=== PATIENT | male | born 1995 | race Caucasian/White ===

== ENCOUNTER 2017-11-26 18:06 | Emergency (ER) | payer MEDICAID, SELFPAY ==
[2017-11-26 18:06] VITALS: BP 148/97; PULSE 75; RESP 18; TEMP 37; O2SAT 99; BMI 23.0
--- NOTE | 2017-11-26 19:38 | ED.RN ---
pt stated that he did not want this to be filed under workmans comp. pt did fill out bite form.
--- NOTE | 2017-11-26 20:00 | ED.DCSUM_ITS ---
- ER Visit Summary Date of Service: 11/26/17 Chief Complaint: Dog bite left thigh History of Present Illness: The patient is a 22 M who was bit by a domestic dog , someone's pad about 3 hours prior to presentation on the left thigh. The legal researcher reported that the dog is vaccinated. The patient was wearing jeans and notes that it did not tear punctured the jeans. Physical Examination: Afebrile vitals are stable Patient has abrasions to the anterior left thigh there are no full-thickness skin lacerations or puncture wounds Test Results: Not indicated Emergency Department Course and Treatment: Patient has very superficial wounds/ abrasions to the left thigh there are no lacerations or puncture wounds this was cleansed. He was instructed on local wound care. He was instructed on signs and symptoms to monitor for and was discharged home. Treatment Plan: [] Disposition: Discharge Impression: Dog bite left thigh This note was generated with [employer] dictation software. It may contain incorrect words, spelling, and punctuation that were not noted in review of the chart prior to signing ED Disposition - Plan for ED Patient: Chief Complaint: Bite Referrals: Dayo Ackerman MD [Primary Care Provider] -
--- NOTE | 2017-11-26 20:00 | ED.DEP ---
ED Disposition - Plan for ED Patient: Chief Complaint: Bite Instructions: ED Bite Dog Referrals: Dayo Ackerman MD [Primary Care Provider] -
[2017-11-26 20:09] VITALS: BP 141/75; PULSE 85; RESP 14; O2SAT 99
== END 2017-11-26 20:13 | disposition home or self-care (01) ==
LOC: ED 20:06
PROVIDERS: Emergency Provider Emergency Medicine; Family Provider Family Medicine; PCP Family Medicine
DX: S71.152A Open bite, left thigh, initial encounter (principal); W54.0XXA Bitten by dog, initial encounter; Y93.9 Activity, unspecified; Y92.9 Unspecified place or not applicable; Y99.9 Unspecified external cause status
CPT/HCPCS: 99282

== ENCOUNTER 2018-07-28 13:51 | Emergency (ER) | payer MEDICAID, SELFPAY ==
[2018-07-28 13:53] VITALS: BP 125/80; PULSE 100; RESP 14; TEMP 36.3; O2SAT 100; BMI 19.7
--- NOTE | 2018-07-28 14:06 | ED.VISSUMM ---
- ER Visit Summary Date of Service: 07/28/18 Chief Complaint: Left ankle injury History of Present Illness: The patient is a 23 M no significant past medical or surgical history. Patient was at a trampoline park last evening. As he was jumping up and down the trampoline he twisted his left ankle and heard a crack. He denies any other injuries. He has pain and swelling to his left lateral ankle. States he is unable to walk on it. Denies any other injuries. No prior history or surgery of a prior left ankle injury. Denies any knee or hip pain. No numbness. Physical Examination: Well-appearing young male. No acute distress. Vital signs stable afebrile. H EENT exam unremarkable atraumatic. Neck nontender. Lungs clear to auscultation bilaterally. Heart regular rate and rhythm no murmur. Chest wall nontender. Abdomen soft and nontender. No peritoneal signs. Pelvic girdle intact. Patient is moving all 4 extremities. Neurovascular intact. Specifically left hip and knee are nontender and nonswollen. With normal range of motion. Left ankle the lateral malleolus is significantly gone. Tender to palpation. Mild tenderness to the medial malleolus. Achilles tendon is intact. Dorsi and plantar flexion is intact. DP pulses intact. No gross bony deformities. Itself is nontender. Liver wiggle his toes. Normal touch sensation. Back nontender. Neurologic exam normal. Test Results: Left ankle x-ray 3 views shows no acute fracture. No dislocation. Soft tissue swelling. Read both by myself and radiologist. Emergency Department Course and Treatment: On repeat exam at 15:00. No change. He and I discussed his x-ray. Treatment Plan: Aircast. Ice and elevate. Motrin to decrease pain and swelling. Follow-up with orthopedics if not improving. Disposition: Discharge Impression: Acute left ankle sprain This note was generated with [employer] dictation software. It may contain incorrect words, spelling, and punctuation that were not noted in review of the chart prior to signing ED Disposition - Plan for ED Patient: Chief Complaint: Lower Extremity Injury Referrals: Dayo Ackerman MD [Primary Care Provider] -
--- NOTE | 2018-07-28 14:17 | RAD_ITS ---
STUDY: X-RAY - LEFT ANKLE REASON FOR EXAM: Male, 23 years old. Pain and swelling TECHNIQUE: 3 view(s) of the ankle. COMPARISON: None FINDINGS: No definite evidence for an acute fracture seen. There is soft tissue swelling overlying the ankle joint noted. Anterior process of the calcaneus is within normal limits. Fifth metatarsal base is not included on this examination. The talar dome appears intact. Lateral process of the talus is intact IMPRESSION: Soft tissue swelling overlying the ankle joint. No definite evidence for acute fracture seen. Please note the fifth metatarsal base is not included on this exam Electronically Signed: Jefferson Barr, at 14:43 EST Tel , Service support , RAD/Ankle min 3 Views
--- NOTE | 2018-07-28 15:16 | ED.DEP ---
ED Disposition - Plan for ED Patient: Disposition: Home or Assisted Living Chief Complaint: Lower Extremity Injury Instructions: ED Sprain Ankle W X Ray Referrals: Dayo Ackerman MD [Primary Care Provider] - As Needed Chuck Lao MD [STAFF PHYSICIAN] - 10-14 Days if not better Additional Instructions: Ice and elevate left ankle to decrease pain and swelling. Aircast and increase activity and weightbearing as tolerated. Motrin for pain and inflammation. If not improving follow-up with orthopedic surgeon.
--- OUTSIDE RECORDS SUMMARY | 2018-10-30 13:30 | XMS RPT_ITS ---
:1995 Author Organization OHIP Care Team Providers Name Role Phone Dayo Ackerman Primary Care Unavailable Cullen Shepherd Attending Unavailable Dayo Ackerman Primary Care Unavailable Dayo Gandhi Attending Unavailable BRENDA AVILA (ORACLE R12 DEVELOPER) Attending Unavailable KASIA ALATORRE Attending Unavailable VANESA MORGAN (ORACLE R12 DEVELOPER) Referring Unavailable RIKKI STUBBS CNP Attending Unavailable ELIZABETH BENTLEY Primary Care Unavailable YENIFER BENSON Attending Unavailable *SELF, REFERRED Referring Unavailable JanaeMr. Patterson Tavon Primary Care Unavailable YENIFER BENSON Attending Unavailable JanaeMr. Patterson Tavon Primary Care Unavailable PROBLEMS PROBLEMS DATE TYPE CONDITION / ATTENDING STATUS SOURCE CODE 12/07/2017 Admitting Encounter for Adis STUBBS CNP [facility] Diagnosis screening for RIKKI Ramirez diabetes Repository mellitus / Z13.1(ICD-10) PROCEDURES PROCEDURES No Procedure Records FoundRESULTS RESULTS DISCHARGE INSTRUCTION Observed: 07/28/2018 Status: F Source: [place] 4:03 PM [facility] REPOSIT[facility] Medical Records Department [address] [place] [address] Discharge Instruction 07/28/18 1516 MR#: [id number] Acct: [id number] Name: YANDEL FLAHERTY Rep #: [id number] : 1995 23 From: Dayo Gandhi MD PCP: Dayo Ackerman MD Status: DEP ER ED Disposition - Plan for ED Patient: Disposition: Home or Assisted Living Chief Complaint: Lower Extremity Injury Instructions: ED Sprain Ankle W X Ray Referrals: Dayo Ackerman MD [Primary Care Provider] - As Needed Chuck Lao MD [STAFF PHYSICIAN] - 10-14 Days if not better Additional Instructions: Ice and elevate left ankle to decrease pain and swelling. Aircast and increase activity and weightbearing as tolerated. Motrin for pain and inflammation. If not improving follow-up with orthopedic surgeon. What to do if you have Problems For any increased pain, shortness of breath, bleeding, nausea or vomiting, chest pain, or any unexpected problems, contact your Primary Care Provider. Call [facility] ([phone]) or report to the closest Emergency Room. Call 911 if necessary. 07/28/18 1603 <Electronically signed by Dayo Gandhi MD> Date Dayo Gandhi MD Cosigner Signature (If Indicated): Date CC: Dayo Ackerman MD EMERGENCY DEPARTMENT Observed: 07/28/2018 Status: F Source: [place] SUMMARY 4:03 PM [facility] REPOSIT[facility] Medical Records Department [address] [place] [address] Emergency Department Summary 07/28/18 1406 MR#: [id number] Acct: [id number] Name: YANDEL FLAHERTY Rep #: [id number] : 1995 23 From: Dayo Gandhi MD PCP: Dayo Ackerman MD Status: DEP ER - ER Visit Summary Date of Service: 07/28/18 Chief Complaint: Left ankle injury History of Present Illness: The patient is a 23 M no significant past medical or surgical history. Patient was at a trampoline park last evening. As he was jumping up and down the trampoline he twisted his left ankle and heard a crack. He denies any other injuries. He has pain and swelling to his left lateral ankle. States he is unable to walk on it. Denies any other injuries. No prior history or surgery of a prior left ankle injury. Denies any knee or hip pain. No numbness. Physical Examination: Well-appearing young male. No acute distress. Vital signs stable afebrile. H EENT exam unremarkable atraumatic. Neck nontender. Lungs clear to auscultation bilaterally. Heart regular rate and rhythm no murmur. Chest wall nontender. Abdomen soft and nontender. No peritoneal signs. Pelvic girdle intact. Patient is moving all 4 extremities. Neurovascular intact. Specifically left hip and knee are nontender and nonswollen. With normal range of motion. Left ankle the lateral malleolus is significantly gone. Tender to palpation. Mild tenderness to the medial malleolus. Achilles tendon is intact. Dorsi and plantar flexion is intact. DP pulses intact. No gross bony deformities. Itself is nontender. Liver wiggle his toes. Normal touch sensation. Back nontender. Neurologic exam normal. Test Results: Left ankle x-ray 3 views shows no acute fracture. No dislocation. Soft tissue swelling. Read both by myself and radiologist. Emergency Department Course and Treatment: On repeat exam at 15:00. No change. He and I discussed his x-ray. Treatment Plan: Aircast. Ice and elevate. Motrin to decrease pain and swelling. Follow-up with orthopedics if not improving. Disposition: Discharge Impression: Acute left ankle sprain This note was generated with [employer] dictation software. It may contain incorrect words, spelling, and punctuation that were not noted in review of the chart prior to signing ED Disposition - Plan for ED Patient: Chief Complaint: Lower Extremity Injury Referrals: Dayo Ackerman MD [Primary Care Provider] - What to do if you have Problems For any increased pain, shortness of breath, bleeding, nausea or vomiting, chest pain, or any unexpected problems, contact your Primary Care Provider. Call [facility] ([phone]) or report to the closest Emergency Room. Call 911 if necessary. 07/28/18 1603 <Electronically signed by Dayo Gandhi MD> Date Dayo Gandhi MD Cosigner Signature (If Indicated): Date CC: Dayo Ackerman MD ANKLE MIN 3 VIEWS Observed: 07/28/2018 Status: F Source: [place] 1:59 PM [facility] REPOSIT[facility] Imaging Services [address] [place] [address] Ankle min 3 Views MR#: [id number] Acct: [id number] Name: YANDEL FLAHERTY Rep #: [id number] : 1995 M 23 From: Jefferson Barr MD PCP: Dayo Ackerman MD Status: REG ER Study: Ankle min 3 Views Date of Exam: 07/28/18 Exam# [id number] Ordering Dr: Dayo Gandhi MD STUDY: X-RAY - LEFT ANKLE REASON FOR EXAM: Male, 23 years old. Pain and swelling TECHNIQUE: 3 view(s) of the ankle. COMPARISON: None FINDINGS: No definite evidence for an acute fracture seen. There is soft tissue swelling overlying the ankle joint noted. Anterior process of the calcaneus is within normal limits. Fifth metatarsal base is not included on this examination. The talar dome appears intact. Lateral process of the talus is intact IMPRESSION: Soft tissue swelling overlying the ankle joint. No definite evidence for acute fracture seen. Please note the fifth metatarsal base is not included on this exam Electronically Signed: Jefferson Barr, at 14:43 EST Tel , Service support , RAD/Ankle min 3 Views CC: Dayo Ackerman MD; Dayo Gandhi MD Retail Area Manager: Signed PROGRESS Observed: 05/02/2018 Status: COMPLETED Source: [facility] 8:29 PM [facility] REPOSITORY HNO ID: [id number] Author: Ellen Tom Service: (none) Author Type: Nurse Practitioner Type: Progress Notes Filed: 05/02/2018 8:55 PM Note Text: Subjective HPI HPI Yandel Flaherty is a 23 year old male who presents today for CC of rash, seen in 04/30 tx for contact derm. Since last visit gabriele has been producing puss. Fever noted today, now spreading to face .Patient presents with: Rash PAST MEDICAL HISTORY Diagnosis Date - Arm fracture, left age 4 yrs fell down steps - Heart palpitations 06/2011 [facility] ER/EKG normal - NEGATIVE MEDICAL HISTORY 10/23/11 normal color vision - Right arm fracture age 11 yrs skateboard - Sprain of left ankle 05/23 PAST SURGICAL HISTORY Procedure Laterality Date - 2D ECHO (EXEP) 02/2017 EF=64%, no abnormalities. - COLONOSCOP W/ OR W/O [facility] SPEC 09/04/2017 Colonoscopy - EGD W/O OR W/BRUSH/WASH 09/04/2017 EGD ALLERGIES Bactrim [Sulfamethoxazole-Trimethoprim]; Pollen Extracts; Sulfamethoxazole; Trimethoprim MEDICATIONS triamcinolone acetonide (KENALOG) 0.1 % cream Apply 1 application to affected area three times daily. Apply sparingly to area for rash/itching. erythromycin ophthalmic ointment FAMOTIDINE (PEPCID ORAL) Take by mouth as needed. FAMILY HISTORY Problem Relation Age of Onset - other (graves) Mother 28 radioactive iodine - Kidney Disease Sister Focal gramanular Schlerosis - Diabetes Maternal Grandmother - Arthritis Maternal Grandmother rheumatoid - other (pulmonary fibrosis) Maternal Grandmother smoker - Asthma Paternal Grandmother - Diabetes Paternal Grandmother - other (lung cancer) Paternal Grandmother smoker Social History Substance Use Topics - Smoking status: Passive Smoke Exposure - Never Smoker - Smokeless tobacco: Former User Comment: mom smokes outside - Alcohol use Yes Comment: occasional Review of Systems Constitutional: Positive for fever. HENT: Positive for sore throat. Negative for sinus pain. Respiratory: Negative for cough, shortness of breath and wheezing. Cardiovascular: Negative for chest pain. Skin: Positive for itching and rash. Objective Blood pressure 100/80, pulse 102, temperature 36.8 ?C (98.2 ?F), temperature source Left Tympanic, resp. rate 16, weight 77.1 kg (170 lb). Physical Exam Constitutional: He is oriented to person, place, and time and well-developed, well-nourished, and in no distress. Non-toxic appearance. He does not have a sickly appearance. No distress. HENT: Head: Normocephalic and atraumatic. Mouth/Throat: Posterior oropharyngeal erythema present. No oropharyngeal exudate, posterior oropharyngeal edema or tonsillar abscesses. Pulmonary/Chest: Effort normal. No accessory muscle usage. No respiratory distress. Neurological: He is alert and oriented to person, place, and time. Skin: He is not diaphoretic. ASSESSMENT/PLAN: 1. Rash - ICD9: 782.1, ICD10: R21 (primary diagnosis) -few honey crusted lesions, possible impetigo -use medication as prescribed -follow up if symptoms persist, worsen, change 2. Sore throat - ICD9: 462, ICD10: J02.9 - Rapid Strep negative in the office today - Discussed supportive care treatment with fluids, rest and analgesia. - The patient should follow up in 3-5 days if symptoms persist or worsen - Call back if drooling, increased temperature, symptoms of dehydration and/or still sick in one week 3. Secondary infection of skin - ICD9: 686.8, ICD10: L08.89 -will treat with cephalexin -follow up if worsening signs of infection Prescription instructions reviewed with patient as applicable. Patient advised if symptoms do not improve or if symptoms worsen sooner, to contact the office for further evaluation by their primary care physician. Potential red flag symptoms discussed with the patient. Reviewed appropriate action plan to take if red flag symptoms occur. Patient agreeable to treatment plan. Ellen Tom APRN.FUNERAL LIMOUSINE DRIVER CNOV Observed: 05/02/2018 Status: COMPLETED Source: [place] [place] 8:15 PM [facility] REPOSITORY Office Visit (WSTR) YANDEL FLAHERTY ([id number]) 1995 M Date Time Provider Department 05/02/18 8:15 PM ELLEN TOM ([facility]) [facility] During your visit today, we recorded the following information about you: Temperature Pulse Respiration Blood pressure 98.2 degrees 102/minute 16/minute 100/80 Weight 77.1 kg Ellen Tom APRN.CNP 05/02/2018 8:55 PM Signed Subjective HPI HPI Yandel Flaherty is a 23 year old male who presents today for CC of rash, seen in 04/30 tx for contact derm. Since last visit gabriele has been producing puss. Fever noted today, now spreading to face .Patient presents with: Rash PAST MEDICAL HISTORY Diagnosis Date - Arm fracture, left age 4 yrs fell down steps - Heart palpitations 06/2011 [facility] ER/EKG normal - NEGATIVE MEDICAL HISTORY 10/23/11 normal color vision - Right arm fracture age 11 yrs skateboard - Sprain of left ankle 05/23 PAST SURGICAL HISTORY Procedure Laterality Date - 2D ECHO (EXEP) 02/2017 EF=64%, no abnormalities. - COLONOSCOP W/ OR W/O [facility] SPEC 09/04/2017 Colonoscopy - EGD W/O OR W/BRUSH/WASH 09/04/2017 EGD ALLERGIES Bactrim [Sulfamethoxazole-Trimethoprim]; Pollen Extracts; Sulfamethoxazole; Trimethoprim MEDICATIONS triamcinolone acetonide (KENALOG) 0.1 % cream Apply 1 application to affected area three times daily. Apply sparingly to area for rash/itching. erythromycin ophthalmic ointment FAMOTIDINE (PEPCID ORAL) Take by mouth as needed. FAMILY HISTORY Problem Relation Age of Onset - other (graves) Mother 28 radioactive iodine - Kidney Disease Sister Focal gramanular Schlerosis - Diabetes Maternal Grandmother - Arthritis Maternal Grandmother rheumatoid - other (pulmonary fibrosis) Maternal Grandmother smoker - Asthma Paternal Grandmother - Diabetes Paternal Grandmother - other (lung cancer) Paternal Grandmother smoker Social History Substance Use Topics - Smoking status: Passive Smoke Exposure - Never Smoker - Smokeless tobacco: Former User Comment: mom smokes outside - Alcohol use Yes Comment: occasional Review of Systems Constitutional: Positive for fever. HENT: Positive for sore throat. Negative for sinus pain. Respiratory: Negative for cough, shortness of breath and wheezing. Cardiovascular: Negative for chest pain. Skin: Positive for itching and rash. Objective Blood pressure 100/80, pulse 102, temperature 36.8 ?C (98.2 ?F), temperature source Left Tympanic, resp. rate 16, weight 77.1 kg (170 lb). Physical Exam Constitutional: He is oriented to person, place, and time and well-developed, well-nourished, and in no distress. Non-toxic appearance. He does not have a sickly appearance. No distress. HENT: Head: Normocephalic and atraumatic. Mouth/Throat: Posterior oropharyngeal erythema present. No oropharyngeal exudate, posterior oropharyngeal edema or tonsillar abscesses. Pulmonary/Chest: Effort normal. No accessory muscle usage. No respiratory distress. Neurological: He is alert and oriented to person, place, and time. Skin: He is not diaphoretic. ASSESSMENT/PLAN: 1. Rash - ICD9: 782.1, ICD10: R21 (primary diagnosis) -few honey crusted lesions, possible impetigo -use medication as prescribed -follow up if symptoms persist, worsen, change 2. Sore throat - ICD9: 462, ICD10: J02.9 - Rapid Strep negative in the office today - Discussed supportive care treatment with fluids, rest and analgesia. - The patient should follow up in 3-5 days if symptoms persist or worsen - Call back if drooling, increased temperature, symptoms of dehydration and/or still sick in one week 3. Secondary infection of skin - ICD9: 686.8, ICD10: L08.89 -will treat with cephalexin -follow up if worsening signs of infection Prescription instructions reviewed with patient as applicable. Patient advised if symptoms do not improve or if symptoms worsen sooner, to contact the office for further evaluation by their primary care physician. Potential red flag symptoms discussed with the patient. Reviewed appropriate action plan to take if red flag symptoms occur. Patient agreeable to treatment plan. JILLIAN Keita APRN.CNP 05/02/2018 8:49 PM Signed ASSESSMENT/PLAN: 1. Rash - ICD9: 782.1, ICD10: R21 (primary diagnosis) -use medication as prescribed -follow up if symptoms persist, worsen, change 2. Sore throat - ICD9: 462, ICD10: J02.9 - Rapid Strep negative in the office today - Discussed supportive care treatment with fluids, rest and analgesia. - The patient should follow up in 3-5 days if symptoms persist or worsen - Call back if drooling, increased temperature, symptoms of dehydration and/or still sick in one week 3. Secondary infection of skin - ICD9: 686.8, ICD10: L08.89 -will treat with cephalexin -follow up if worsening signs of infection Referring Provider: SELF [200] Allergies As of Date: 05/02/2018 Noted Allergy Reaction BACTRIM (SULFAMETHOXAZOLE-TRIMETH*01/16/2017 2 - Rash POLLEN EXTRACTS 04/26/2017 14 - Other: See Comments Comments: Stuffy nose, cough SULFAMETHOXAZOLE 02/04/2017 2 - Rash TRIMETHOPRIM 02/04/2017 2 - Rash Date Reviewed: 05/02/2018 Reviewed by: Ellen CastroSomerville HospitalDenzel Tom - Fully Assessed Reason for Visit: Rash [1087] Primary Visit Diagnosis:Rash [R21] Other Visit Diagnoses:Sore throat [J02.9] Secondary infection of skin [L08.89] Order(s):RAPID STREP TEST B/O [[id number]] Order #: [id number] cephALEXin (KEFLEX) 500 mg capsuleTake 1 capsule by mouth three times daily for 10 days.Disp: 30 capsuleRfl: 0 methylPREDNISolone (MEDROL, LORENZO,) 4 mg Dose-PackFollow dosing instructions, take with food.Disp: 1 PackageRfl: 0 Prescriptions as of 05/02/2018 Sig: TRIAMCINOLONE ACETONIDE 0.1 %* Apply 1 application to affect* CEPHALEXIN 500 MG CAPSULE Take 1 capsule by mouth three* METHYLPREDNISOLONE 4 MG TABLE* Follow dosing instructions, t* ERYTHROMYCIN 5 MG/GRAM (0.5 %* PEPCID ORAL Take by mouth as needed. Problem List As Of Date 05/02/2018 Noted Resolved Heart palpitations [R00.2] INVALID FOR* More... Well adult exam [Z00.00] INVALID FOR* Priority: E More... Encounter for screening for cardiovascular diso*INVALID FOR* Encounter for screening for diabetes mellitus [*INVALID FOR* Mild anxiety [F41.9] INVALID FOR* Palpitations [R00.2] INVALID FOR* Epigastric pain [R10.13] INVALID FOR* Atypical chest pain [R07.89] INVALID FOR* Hematochezia [K92.1] INVALID FOR* Lower abdominal pain [R10.30] INVALID FOR* Heart burn [R12] INVALID FOR* Sinus tachycardia [R00.0] INVALID FOR* Priority: A More... Altered bowel habits [R19.4] INVALID FOR* More... Bright red rectal bleeding [K62.5] INVALID FOR* More... GERD (gastroesophageal reflux disease) [K21.9] INVALID FOR* More... Dyspepsia [R10.13] INVALID FOR* More... Other instructions from your clinician: ASSESSMENT/PLAN: 1. Rash - ICD9: 782.1, ICD10: R21 (primary diagnosis) -use medication as prescribed -follow up if symptoms persist, worsen, change 2. Sore throat - ICD9: 462, ICD10: J02.9 - Rapid Strep negative in the office today - Discussed supportive care treatment with fluids, rest and analgesia. - The patient should follow up in 3-5 days if symptoms persist or worsen - Call back if drooling, increased temperature, symptoms of dehydration and/or still sick in one week 3. Secondary infection of skin - ICD9: 686.8, ICD10: L08.89 -will treat with cephalexin -follow up if worsening signs of infection Prescriptions ordered this encounter Disp Refills Start End CEPHALEXIN 500 MG CAPSULE 30 c* 0 05/02/2018 05/12/2018 Route: ORAL Sig: Take 1 capsule by mouth three times daily for 10 days. METHYLPREDNISOLONE 4 MG TABLETS IN A* 1 Pa* 0 05/02/2018 05/08/2018 Sig: Follow dosing instructions, take with food. Encounter Status:Closed by ELLEN TOM CNP on 05/02/18 MARIANGEL Observed: 04/30/2018 Status: COMPLETED Source: [place] [place] 8:00 PM [facility] REPOSITORY Office Visit (WSTR) YANDEL FLAHERTY ([id number]) 1995 M Date Time Provider Department 04/30/18 8:00 PM ELVIRA ROMERO (FUNERAL LIMOUSINE DRIVER) [facility] During your visit today, we recorded the following information about you: Temperature Pulse Respiration Blood pressure 98.3 degrees 60/minute 16/minute 116/60 Weight 77.6 kg Elvira Romero APRN.CNP 04/30/2018 8:10 PM Signed Subjective The history is provided by the patient. No educational interpreter was used. HPI Yandel Flaherty is a 23 year old male who presents today for CC of rash, on arm, that are itchy Onset/Duration: 3 weeks ago. Alleviating/Treatment: Nothing, itch cream with out relief. Aggravating: None known Risk factors: Swam in quinones 3 weeks BP 116/60 Pulse 60 Temp 36.8 ?C (98.3 ?F) (Tympanic) Resp 16 Wt 77.6 kg (171 lb) BMI 23.19 kg/m? ALLERGIES Allergen Reactions - Bactrim [Sulfametho* Rash - Pollen Extracts Other: See Comments Stuffy nose, cough - Sulfamethoxazole Rash - Trimethoprim Rash ACTIVE PROBLEM LIST Heart Palpitations Well Adult Exam Encounter for Screening for Cardiovascular Disorders Encounter for Screening for Diabetes Mellitus Mild Anxiety Palpitations Epigastric Pain Atypical Chest Pain Hematochezia Lower Abdominal Pain Heart Burn Sinus Tachycardia Altered Bowel Habits Bright Red Rectal Bleeding Gerd (Gastroesophageal Reflux Disease) Dyspepsia Family History Problem Relation Age of Onset - other (graves) Mother 28 radioactive iodine - Kidney Disease Sister Focal gramanular Schlerosis - Diabetes Maternal Grandmother - Arthritis Maternal Grandmother rheumatoid - other (pulmonary fibrosis) Maternal Grandmother smoker - Asthma Paternal Grandmother - Diabetes Paternal Grandmother - other (lung cancer) Paternal Grandmother smoker Social History Marital status: Single Spouse name: Years of education: Number of children: 0 Social History Main Topics Smoking status: Passive Smoke Exposure - Never Smoker Packs/day: 0.00 Years: 0.00 Smokeless tobacco: Former User Comment: mom smokes outside Alcohol use: Yes Comment: occasional Drug use: No Sexual activity: No PAST MEDICAL HISTORY Diagnosis Date - Arm fracture, left age 4 yrs fell down steps - Heart palpitations 06/2011 [facility] ER/EKG normal - NEGATIVE MEDICAL HISTORY 10/23/11 normal color vision - Right arm fracture age 11 yrs skateboard - Sprain of left ankle 05/23 Review of Systems Constitutional: Negative for chills, fever and malaise/fatigue. Genitourinary: Negative for dysuria. Musculoskeletal: Negative for joint pain and myalgias. Skin: Positive for itching and rash. Neurological: Negative for headaches. Objective Physical Exam Constitutional: He is oriented to person, place, and time and well-developed, well-nourished, and in no distress. No distress. HENT: Head: Normocephalic and atraumatic. Eyes: Pupils are equal, round, and reactive to light. Conjunctivae and EOM are normal. Neck: Normal range of motion. Neck supple. Pulmonary/Chest: Effort normal. Neurological: He is alert and oriented to person, place, and time. Skin: Skin is warm and dry. Rash noted. Rash is papular (brown and red). There is erythema. Psychiatric: Affect normal. Nursing note and vitals reviewed. ASSESSMENT/PLAN: 1. 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 - TRIAMCINOLONE ACETONIDE 0.1 % TOPICAL CREAM Diagnosis and treatment plan were discussed and questions were answered to the patient's satisfaction. Pt acknowledged understanding of concepts and follow up plan. Specific signs and symptoms that would indicate the need for higher level of care were discussed in detail warranting prompt ER evaluation. Elvira Romero APRN.SERGEY Romero APRN.SERGEY 04/30/2018 8:04 PM Signed ASSESSMENT/PLAN: 1. Rash - ICD9: 782.1, ICD10: R21 Use cream as directed for 2 weeks Benadryl 50 mg at bedtime Zyrtec 10 mg By mouth daily at bedtime If no improvement follow up with PCP, or significantly worsening symptoms to ER. - TRIAMCINOLONE ACETONIDE 0.1 % TOPICAL CREAM Referring Provider: SELF [200] Allergies As of Date: 04/30/2018 Noted Allergy Reaction BACTRIM (SULFAMETHOXAZOLE-TRIMETH*01/16/2017 2 - Rash POLLEN EXTRACTS 04/26/2017 14 - Other: See Comments Comments: Stuffy nose, cough SULFAMETHOXAZOLE 02/04/2017 2 - Rash TRIMETHOPRIM 02/04/2017 2 - Rash Date Reviewed: 04/30/2018 Reviewed by: Sandra Goodman LPN - Fully Assessed Reason for Visit: Derm Problem [33] Cmt: skin feels irritated AND itches over most of body, has small red bumps on hands X 1 miguel a Primary Visit Diagnosis:Rash [R21] Order(s):triamcinolone acetonide (KENALOG) 0.1 % creamApply 1 application to affected area three times daily. Apply sparingly to area for rash/itching.Disp: 80 gRfl: 0 Prescriptions as of 04/30/2018 Sig: TRIAMCINOLONE ACETONIDE 0.1 %* Apply 1 application to affect* ERYTHROMYCIN 5 MG/GRAM (0.5 %* PEPCID ORAL Take by mouth as needed. Problem List As Of Date 04/30/2018 Noted Resolved Heart palpitations [R00.2] INVALID FOR* More... Well adult exam [Z00.00] INVALID FOR* Priority: E More... Encounter for screening for cardiovascular diso*INVALID FOR* Encounter for screening for diabetes mellitus [*INVALID FOR* Mild anxiety [F41.9] INVALID FOR* Palpitations [R00.2] INVALID FOR* Epigastric pain [R10.13] INVALID FOR* Atypical chest pain [R07.89] INVALID FOR* Hematochezia [K92.1] INVALID FOR* Lower abdominal pain [R10.30] INVALID FOR* Heart burn [R12] INVALID FOR* Sinus tachycardia [R00.0] INVALID FOR* Priority: A More... Altered bowel habits [R19.4] INVALID FOR* More... Bright red rectal bleeding [K62.5] INVALID FOR* More... GERD (gastroesophageal reflux disease) [K21.9] INVALID FOR* More... Dyspepsia [R10.13] INVALID FOR* More... Other instructions from your clinician: ASSESSMENT/PLAN: 1. Rash - ICD9: 782.1, ICD10: R21 Use cream as directed for 2 weeks Benadryl 50 mg at bedtime Zyrtec 10 mg By mouth daily at bedtime If no improvement follow up with PCP, or significantly worsening symptoms to ER. - TRIAMCINOLONE ACETONIDE 0.1 % TOPICAL CREAM Prescriptions ordered this encounter Disp Refills Start End TRIAMCINOLONE ACETONIDE 0.1 % TOPICA* 80 g 0 04/30/2018 Route: TOPICAL Sig: Apply 1 application to affected area three times daily. Apply sparingly to area for rash/itching. Encounter Status:Closed by ELVIRA ROMERO CNP on 04/30/18 PROGRESS Observed: 04/30/2018 Status: COMPLETED Source: [place] 7:59 PM [facility] MAIN [place] REPOSITORY O ID: [id number] Author: Elvira (Sergey) Heather Service: (none) Author Type: Nurse Practitioner Type: Progress Notes Filed: 04/30/2018 8:10 PM Note Text: Subjective The history is provided by the patient. No educational interpreter was used. HPI Yandel Flaherty is a 23 year old male who presents today for CC of rash, on arm, that are itchy Onset/Duration: 3 weeks ago. Alleviating/Treatment: Nothing, itch cream with out relief. Aggravating: None known Risk factors: Swam in quinones 3 weeks BP 116/60 Pulse 60 Temp 36.8 ?C (98.3 ?F) (Tympanic) Resp 16 Wt 77.6 kg (171 lb) BMI 23.19 kg/m? ALLERGIES Allergen Reactions - Bactrim [Sulfametho* Rash - Pollen Extracts Other: See Comments Stuffy nose, cough - Sulfamethoxazole Rash - Trimethoprim Rash ACTIVE PROBLEM LIST Heart Palpitations Well Adult Exam Encounter for Screening for Cardiovascular Disorders Encounter for Screening for Diabetes Mellitus Mild Anxiety Palpitations Epigastric Pain Atypical Chest Pain Hematochezia Lower Abdominal Pain Heart Burn Sinus Tachycardia Altered Bowel Habits Bright Red Rectal Bleeding Gerd (Gastroesophageal Reflux Disease) Dyspepsia Family History Problem Relation Age of Onset - other (graves) Mother 28 radioactive iodine - Kidney Disease Sister Focal gramanular Schlerosis - Diabetes Maternal Grandmother - Arthritis Maternal Grandmother rheumatoid - other (pulmonary fibrosis) Maternal Grandmother smoker - Asthma Paternal Grandmother - Diabetes Paternal Grandmother - other (lung cancer) Paternal Grandmother smoker Social History Marital status: Single Spouse name: Years of education: Number of children: 0 Social History Main Topics Smoking status: Passive Smoke Exposure - Never Smoker Packs/day: 0.00 Years: 0.00 Smokeless tobacco: Former User Comment: mom smokes outside Alcohol use: Yes Comment: occasional Drug use: No Sexual activity: No PAST MEDICAL HISTORY Diagnosis Date - Arm fracture, left age 4 yrs fell down steps - Heart palpitations 06/2011 [facility] ER/EKG normal - NEGATIVE MEDICAL HISTORY 10/23/11 normal color vision - Right arm fracture age 11 yrs skateboard - Sprain of left ankle 05/23 Review of Systems Constitutional: Negative for chills, fever and malaise/fatigue. Genitourinary: Negative for dysuria. Musculoskeletal: Negative for joint pain and myalgias. Skin: Positive for itching and rash. Neurological: Negative for headaches. Objective Physical Exam Constitutional: He is oriented to person, place, and time and well-developed, well-nourished, and in no distress. No distress. HENT: Head: Normocephalic and atraumatic. Eyes: Pupils are equal, round, and reactive to light. Conjunctivae and EOM are normal. Neck: Normal range of motion. Neck supple. Pulmonary/Chest: Effort normal. Neurological: He is alert and oriented to person, place, and time. Skin: Skin is warm and dry. Rash noted. Rash is papular (brown and red). There is erythema. Psychiatric: Affect normal. Nursing note and vitals reviewed. ASSESSMENT/PLAN: 1. 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 - TRIAMCINOLONE ACETONIDE 0.1 % TOPICAL CREAM Diagnosis and treatment plan were discussed and questions were answered to the patient's satisfaction. Pt acknowledged understanding of concepts and follow up plan. Specific signs and symptoms that would indicate the need for higher level of care were discussed in detail warranting prompt ER evaluation. Elvira Romero APRN.FUNERAL LIMOUSINE DRIVER GLU Collected: 12/07/2017 Status: F Source: [facility] 11:15 AM [facility] REPOSITORY TYPE CODE TESTS RESULT OUT OF REFERENCE UNITS RANGE LAB 1547-9 70-105 mg/dL GLUCOSE 83 Performed By: #### GLU, LIPID #### [id number] [place], [place] [address] LIPID Collected: 12/07/2017 Status: F Source: [facility] 11:15 AM [facility] REPOSITORY TYPE CODE TESTS RESULT OUT OF REFERENCE UNITS RANGE LAB CHOL(LOINC 131-200 mg/dL ) Cholesterol 183 Result Comment: Cholesterol Reference Interval: Less than 200 Desirable 200-239 Borderline high risk 240 and above High risk LAB TRIG(LOINC) 40-150 mg/dL Triglycerides 75 Result Comment: Triglyceride Reference Interval: Less than 150 Normal 150-199 Borderline high risk 200-499 High risk 500 or higher Very high risk LAB HD(LOINC) 35-90 mg/dL HDL Cholesterol 59 Result Comment: HDL Reference Interval: Less than 40 Low - high risk 60 or above Optimal/lowers risk LAB LDL(LOINC) 0-130 mg/dL LDL Cholesterol 109 Result Comment: LDL is a calculated result and requires a 12-hr fast. LDL Reference Interval: Less than 100 Optimal 100-129 Near or above optimal 130-159 Borderline high risk 160-189 High risk 190 and above Very high risk Performed By: #### GLU, LIPID #### [id number] [place], [place] [address] DISCHARGE INSTRUCTION Observed: 11/26/2017 Status: F Source: [place] 8:01 PM [facility] REPOSITORY [facility] Medical Records Department [address] [place] [address] Discharge Instruction 11/26/171999 MR#: [id number] Acct: [id number] Name: YANDEL FLAHERTY Rep #: [id number] : 1995 22 From: Cullen Shepherd MD PCP: Dayo Ackerman MD Status: PRE ER ED Disposition - Plan for ED Patient: Chief Complaint: Bite Instructions: ED Bite Dog Referrals: Dayo Ackerman MD [Primary Care Provider] - What to do if you have Problems For any increased pain, shortness of breath, bleeding, nausea or vomiting, chest pain, or any unexpected problems, contact your Primary Care Provider. Call [facility] ([phone]) or report to the closest Emergency Room. Call 911 if necessary. 04/16/18 2001 <Electronically signed by Cullen Shepherd MD> Date Cullen Shepherd MD Cosigner Signature (If Indicated): Date CC: Dayo Ackerman MD EMERGENCY DEPARTMENT Observed: 11/26/2017 Status: F Source: [place] SUMMARY 8:00 PM [facility] REPOSITORY [facility] Medical Records Department [address] [place] [address] Emergency Department Summary 11/26/171958 MR#: [id number] Acct: [id number] Name: YANDEL FLAHERTY Rep #: [id number] : 1995 From: Cullen hSepherd MD PCP: Dayo Ackerman MD Status: PRE ER - ER Visit Summary Date of Service: 11/26/17 Chief Complaint: Dog bite left thigh History of Present Illness: The patient is a 22 M who was bit by a domestic dog, someone's pad about 3 hours prior to presentation on the left thigh. The real estate professional reported that the dog is vaccinated. The patient was wearing jeans and notes that it did not tear punctured the jeans. Physical Examination: Afebrile vitals are stable Patient has abrasions to the anterior left thigh there are no full-thickness skin lacerations or puncture wounds Test Results: Not indicated Emergency Department Course and Treatment: Patient has very superficial wounds/abrasions to the left thigh there are no lacerations or puncture wounds this was cleansed. He was instructed on local wound care. He was instructed on signs and symptoms to monitor for and was discharged home. Treatment Plan: [] Disposition: Discharge Impression: Dog bite left thigh This note was generated with [employer] dictation software. It may contain incorrect words, spelling, and punctuation that were not noted in review of the chart prior to signing ED Disposition - Plan for ED Patient: Chief Complaint: Bite Referrals: Dayo Ackerman MD [Primary Care Provider] - What to do if you have Problems For any increased pain, shortness of breath, bleeding, nausea or vomiting, chest pain, or any unexpected problems, contact your Primary Care Provider. Call [facility] ([phone]) or report to the closest Emergency Room. Call 911 if necessary. 11/26/171999 <Electronically signed by Cullen Shepherd MD> Date Cullen Shepherd MD Cosigner Signature (If Indicated): Date CC: Dayo Ackerman MD PROGRESS Observed: 09/14/2017 Status: COMPLETED Source: [place] 11:23 AM [facility] REPOSITORY HNO ID: [id number] Author: Kasia Alatorre Service: (none) Author Type: Physician Type: Progress Notes Filed: 09/15/2017 9:03 PM Note Text: Yandel presents for follow up of EGD and colonoscopy for complaint of altered bowel habits, bright red blood per rectum, GERD, and dyspepsia. Pathology for celiac sprue, h pylori, and random mucosal biopsies of colon looking for colitis - were all negative. Patient states that he has suprapubic pain and points to this locations. States primarily in the morning. Denies dysuria PAST MEDICAL HISTORY: Denies major medical illnesses such as diabetes or hypertension PAST SURGICA: HISTORY: Denies previous surgery REVIEW OF SYSTEMS: Denies fevers, denies appetite changes Examination: WD/WN WM in no apparent distress, alert and oriented Normocephalic, atraumatic, sclera clear, mucus membranes moist Abdomen is soft and benign, no inguinal hernias noted Impression: suprapubic pain, normal EGD/colonoscopy Plan: I have no surgical options for the patient at this point in time. Patient to return to his primary physician for medical care. PROGRESS Observed: 09/10/2017 Status: COMPLETED Source: [place] 1:59 PM [facility] REPOSITORY O ID: [id number] Author: Brenda Nguyen (Rudolph) Austin Service: (none) Author Type: Nurse Practitioner Type: Progress Notes Filed: 09/10/2017 2:06 PM Note Text: Chief Complaint Patient presents with: Recheck: pt follow up on colonoscopy HPI Yandel Flaherty is a 22 year old male who presents here today for follow up colonoscopy and EGD. Done by Dr. Alatorre on 09/04/17 at [facility] for sx of reflux and upper abdominal pain. The patient was unclear who he was to follow up with so was scheduled in FM with me. The ROS is otherwise negative. Past medical history, appointments, medications, allergies reviewed. Patient Allergies ALLERGIES Allergen Reactions - Bactrim [Sulfametho* Rash - Pollen Extracts Other: See Comments Stuffy nose, cough - Sulfamethoxazole Rash - Trimethoprim Rash Current Medications Current Outpatient Prescriptions on File Prior to Visit: FAMOTIDINE (PEPCID ORAL) Take by mouth as needed. erythromycin ophthalmic ointment No current facility-administered medications on file prior to visit. Previous Medical History PAST MEDICAL HISTORY Diagnosis Date - Arm fracture, left age 4 yrs fell down steps - Heart palpitations 06/2011 [facility] ER/EKG normal - NEGATIVE MEDICAL HISTORY 10/23/11 normal color vision - Right arm fracture age 11 yrs skateboard - Sprain of left ankle 05/23 Previous Surgical History PAST SURGICAL HISTORY Procedure Laterality Date - 2D ECHO (EXEP) 02/2017 EF=64%, no abnormalities. - COLONOSCOP W/ OR W/O [facility] SPEC 09/04/2017 Colonoscopy - EGD W/O OR W/BRUSH/WASH 09/04/2017 EGD Family History FAMILY HISTORY Problem Relation Age of Onset - graves [OTHER] Mother 28 radioactive iodine - Kidney Disease Sister Focal gramanular Schlerosis - Diabetes Maternal Grandmother - Arthritis Maternal Grandmother rheumatoid - pulmonary fibrosis [OTHER] Maternal Grandmother smoker - Asthma Paternal Grandmother - Diabetes Paternal Grandmother - lung cancer [OTHER] Paternal Grandmother smoker Social History Social History Marital status: Single Spouse name: Years of education: Number of children: 0 Social History Main Topics Smoking status: Passive Smoke Exposure - Never Smoker Packs/day: 0.00 Years: 0.00 Smokeless status: Former User Comment: mom smokes outside Alcohol use: Yes Comment: occasional Drug use: No Sexual activity: No EXAM: BP 126/70 (BP Site: Right Arm, BP Position: Sitting, BP Cuff Size: Large Adult) Pulse 100 Temp 36.6 ?C (97.8 ?F) (Tympanic) Resp 16 Wt 77.6 kg (171 lb) BMI 23.19 kg/m2 General Appearance: Well appearing, alert, in no acute distress, well-hydrated, well nourished.. ASSESSMENT/PLAN: 1. Dyspepsia - ICD9: 536.8, ICD10: R10.13 - Dr. Alatorre's office notified and apt facilitated. Patient scheduled to be seen by Dr. Alatorre 09/13/17 at 2:30 pm. Brief review of the colonoscopy was discussed with patient, however, he will follow up as intended and planned. DEMETRIO Schmid FUNERAL LIMOUSINE DRIVER CNOV Observed: 09/10/2017 Status: COMPLETED Source: [place] 1:20 PM [facility] REPOSITORY Office Visit (FAMPWS) YANDEL FLAHERTY ([id number]) 1995 M Date Time Provider Department 09/10/17 1:20 PM BRENDA AVILA (ORACLE R12 DEVELOPER) FAMPWS During your visit today, we recorded the following information about you: Temperature Pulse Respiration Blood pressure 97.8 degrees 100/minute 16/minute 126/70 Weight 77.6 kg DEMETRIO Schmid FUNERAL LIMOUSINE DRIVER 09/10/2017 2:06 PM Signed Chief Complaint Patient presents with: Recheck: pt follow up on colonoscopy HPI Yandel Brooksceceritika is a 22 year old male who presents here today for follow up colonoscopy and EGD. Done by Dr. Alatorre on 09/04/17 at [facility] for sx of reflux and upper abdominal pain. The patient was unclear who he was to follow up with so was scheduled in FM with me. The ROS is otherwise negative. Past medical history, appointments, medications, allergies reviewed. Patient Allergies ALLERGIES Allergen Reactions - Bactrim [Sulfametho* Rash - Pollen Extracts Other: See Comments Stuffy nose, cough - Sulfamethoxazole Rash - Trimethoprim Rash Current Medications Current Outpatient Prescriptions on File Prior to Visit: FAMOTIDINE (PEPCID ORAL) Take by mouth as needed. erythromycin ophthalmic ointment No current facility-administered medications on file prior to visit. Previous Medical History PAST MEDICAL HISTORY Diagnosis Date - Arm fracture, left age 4 yrs fell down steps - Heart palpitations 06/2011 [facility] ER/EKG normal - NEGATIVE MEDICAL HISTORY 10/23/11 normal color vision - Right arm fracture age 11 yrs skateboard - Sprain of left ankle 05/23 Previous Surgical History PAST SURGICAL HISTORY Procedure Laterality Date - 2D ECHO (EXEP) 02/2017 EF=64%, no abnormalities. [facility] Colonoscopy - EGD W/O OR W/BRUSH/WASH 09/04/2017 EGD Family History FAMILY HISTORY Problem Relation Age of Onset - graves [OTHER] Mother 28 radioactive iodine - Kidney Disease Sister Focal gramanular Schlerosis - Diabetes Maternal Grandmother - Arthritis Maternal Grandmother rheumatoid - pulmonary fibrosis [OTHER] Maternal Grandmother smoker - Asthma Paternal Grandmother - Diabetes Paternal Grandmother - lung cancer [OTHER] Paternal Grandmother smoker Social History Social History Marital status: Single Spouse name: Years of education: Number of children: 0 Social History Main Topics Smoking status: Passive Smoke Exposure - Never Smoker Packs/day: 0.00 Years: 0.00 Smokeless status: Former User Comment: mom smokes outside Alcohol use: Yes Comment: occasional Drug use: No Sexual activity: No EXAM: BP 126/70 (BP Site: Right Arm, BP Position: Sitting, BP Cuff Size: Large Adult) Pulse 100 Temp 36.6 ?C (97.8 ?F) (Tympanic) Resp 16 Wt 77.6 kg (171 lb) BMI 23.19 kg/m2 General Appearance: Well appearing, alert, in no acute distress, well-hydrated, well nourished.. ASSESSMENT/PLAN: 1. Dyspepsia - ICD9: 536.8, ICD10: R10.13 - Dr. Alatorre's office notified and apt facilitated. Patient scheduled to be seen by Dr. Alatorre 09/13/17 at 2:30 pm. Brief review of the colonoscopy was discussed with patient, however, he will follow up as intended and planned. Brenda Avila, MSN FUNERAL LIMOUSINE DRIVER Referring Provider: SELF [200] Allergies As of Date: 09/10/2017 Noted Allergy Reaction BACTRIM (SULFAMETHOXAZOLE-TRIMETH*01/16/2017 2 - Rash POLLEN EXTRACTS 04/26/2017 14 - Other: See Comments Comments: Stuffy nose, cough SULFAMETHOXAZOLE 02/04/2017 2 - Rash TRIMETHOPRIM 02/04/2017 2 - Rash Date Reviewed: 09/10/2017 Reviewed by: Grzegorz Mcgraw LPN - Fully Assessed Reason for Visit: Recheck [92] Cmt: pt follow up on colonoscopy Primary Visit Diagnosis:Dyspepsia [R10.13] Prescriptions as of 09/10/2017 Sig: PEPCID ORAL Take by mouth as needed. ERYTHROMYCIN 5 MG/GRAM (0.5 %* Problem List As Of Date 09/10/2017 Noted Resolved Heart palpitations [R00.2] INVALID FOR* More... Well adult exam [Z00.00] INVALID FOR* Priority: E More... Encounter for screening for cardiovascular diso*INVALID FOR* Encounter for screening for diabetes mellitus [*INVALID FOR* Mild anxiety [F41.9] INVALID FOR* Palpitations [R00.2] INVALID FOR* Epigastric pain [R10.13] INVALID FOR* Atypical chest pain [R07.89] INVALID FOR* Hematochezia [K92.1] INVALID FOR* Lower abdominal pain [R10.30] INVALID FOR* Heart burn [R12] INVALID FOR* Sinus tachycardia [R00.0] INVALID FOR* Priority: A More... Altered bowel habits [R19.4] INVALID FOR* More... Bright red rectal bleeding [K62.5] INVALID FOR* More... GERD (gastroesophageal reflux disease) [K21.9] INVALID FOR* More... Dyspepsia [R10.13] INVALID FOR* More... Encounter Status:Closed by BRENDA AVILA FUNERAL LIMOUSINE DRIVER on 09/10/17 ALLERGIES ALLERGIES DATE TYPE / NAME / CODE REACTION SEVERITY SOURCE CODE 07/28/2018 Drug sulfamethoxazole/F0060 Rash Unknown [place] Allergy/41 89265(RXNORM) Community [id number]([facility]) Repository 07/28/2018 Drug trimethoprim/[id number] Rash Unknown [place] Allergy/41 3(RXNORM) Community [id number]( [facility]) Repository 04/26/2017 DRUG POLLEN EXTRACTS OTHER: SEE C [place] INGREDI/41 Clinic Main [id number]( [place] [facility]) Repository 02/04/2017 DRUG SULFAMETHOXAZOLE RASH [facility]41 Clinic Main [id number]( [place] [facility]) Repository 02/04/2017 [facility] [place] [address] Main [id number]( [place] O[facility]) Repository 01/16/2017 DRUG/45720 SULFAMETHOXAZOLE-TRIME RASH [place] 1003([facility] THOPRIM Clinic Main D CT) [place] Repository ENCOUNTERS ENCOUNTERS ADMIT/DISCHARGE ACCOUNT NUMBER ADMITTING ENCOUNTER LOCATION SOURCE CLASS 07/29/2018 [id number] [address] [place] [address] Repository 07/28/2018/07/28/20 [id number] Emergency [address] ding:ED Repository 06/20/2018 [id number] Ambulatory [address] [place] [address] Repository 05/02/2018/05/03/20 [id number] Ambulatory [address] Repository 04/30/2018/05/01/20 [id number] Ambulatory [address] Repository 12/07/2017/12/12/19 [id number] Ambulatory [address] ding:[facility] Repository 11/26/2017/11/27/19 [id number] Emergency [address] ding:ED Repository 09/13/2017/09/13/19 [id number] Ambulatory [address] Repository 09/10/2017/09/10/19 [id number] Ambulatory [address] Repository PAYERS PAYERS ENCOUNTER GUARANTOR PAYER SUBSCRIBER SOURCE 07/29/2018 [facility] Insurance:Joann ESPARZAB: Hospitals [id number] [facility] [id number] Repository [facility] Number: LEONIE Kahn, [id number] [place] [address]Ybv: Date:Plan [place] [address]Poh: Name:[facility] O [address] () [address] [place] [address] () [id number]: 07/28/2018 Yandel Lyman Primary Yandel Sandersoster [id number] Insurance:BUCKEYE BadertscherDOB: [facility] [id number] County HospitalPolgunders[facility] Number: Repository [id number]: [phone] [id number] () Date:8298-02-04FT [address] [place] [address]UW: 07/28/2018 Secondary NOT GIVENUNK Kareem Insurance:SELF PAY [facility] Number: Effective Repository Date:2018-07-28 06/20/2018 YANDEL Syed [facility]: Insurance:[place] BADERTSCHERDOB: [facility] [id number] Repository [facility] Number: [facility], [id number], [place] [address]Hor: Date:[facility] [address]Dww: Name:[facility] Box () [address] [place] [address] () [address]SZ: 12/07/2017 YANDEL Syed [facility]DEL [facility]: Insurance:[facility]PITALERTSCHERDOB: [facility] [id number] Repository [facility] Number: N [facility], [place] [id number] [place] [email or web address] Date:2017-12-0736137Szb: (058) PatrickADARSH.EDUTel: [id number] Name:[address] (HP)Tel: (601) (HP)Tel: [phone]) [address] [phone] (JZ) [phone] (WP) [address]UZ: 11/26/2017 Yandel Lyman Primary Yandel Vas[address] Insurance:JOANN EsparzaB: [facility] [id number] County HospitalPolicy Number: Repository [address]Vvs: (886) [id number] () Date:[id number], [place] [address]LF: 11/26/2017 Secondary NOT GIVENVALERIE Serna Insurance:SELF PAY [facility] Number: Effective Repository Date:2017-11-26
== END 2018-07-28 15:55 | disposition home or self-care (01) ==
PROVIDERS: Emergency Provider Emergency Medicine; Family Provider Family Medicine; PCP Family Medicine
DX: S93.402A Sprain of unspecified ligament of left ankle, initial encounter (principal); Y93.44 Activity, trampolining; X50.1XXA Overexertion from prolonged static or awkward postures, initial encounter; Y92.830 Public park as the place of occurrence of the external cause; Y99.8 Other external cause status
CPT/HCPCS: 73610; 99283

== ENCOUNTER 2018-10-30 09:49 | Inpatient (IN) | payer MEDICAID, SELFPAY ==
[2018-10-30] VITALS (26 sets, daily range): BP systolic 100–143; BP diastolic 56–113; PULSE 62–111; RESP 11–17; TEMP 36–36.6; O2SAT 97–100; BMI 23.0; BMI 23.1; BMI 22.1
--- NOTE | 2018-10-30 10:00 | EKG12_ITS ---
Test Reason : PALPITATIONS Blood Pressure : / mmHG Vent. Rate : 073 BPM Atrial Rate : 073 BPM P-R Int : 166 ms QRS Dur : 096 ms QT Int : 392 ms P-R-T Axes : 049 057 043 degrees QTc Int : 431 ms Sinus rhythm with occasional and consecutive Premature ventricular complexes Abnormal ECG Confirmed by CARIE HINKLE, JESSICA ([id number]), senior editor URIEL WHITING ([id number]) on 11/01/2018 9:30:15 AM Referred By: Braeden Echavarria Confirmed By:JESSICA DARNELL MD
--- NOTE | 2018-10-30 10:12 | RAD_ITS ---
STUDY: X-RAY CHEST REASON FOR EXAM: Male, 23 years old. Palpitations TECHNIQUE: Single AP portable view of the chest. COMPARISON: Chest x-ray 02/04/2017 FINDINGS: The lungs are clear and expanded. There is no demonstrated pleural abnormality. Normal size heart. Normal mediastinum and larry. Normal visualized pulmonary arteries. Normal visualized aortic arch and descending thoracic aorta. Normal visualized thoracic spine. Normal visualized ribs, clavicles, and shoulders. There is no demonstrated abnormality of the visualized soft tissue structures of the upper abdomen. RAD/Chest 1 View (Portable) IMPRESSION: Normal x-ray examination of the chest. Electronically Signed: Maldonado Vanessa, at 10:29 EDT Tel , Service support ,
[2018-10-30 10:28] LABS: Absolute Lymphocyte Count 1.88 X10^3/ul (0.83-4.51); Basophil# 0.01 X10^3/uL; Basophil% 0.2 % (0-1); Eosinophil# 0.19 X10^3/uL; Eosinophils% 3.4 % (0-5); Hematocrit 51.8 % (40-54); Hemoglobin 17.3 g/dl (13.0-16.5); Lymphocyte # 1.88 X10^3/ul (4.0); Lymphocyte % 33.5 % (19-41); Mean Corp Hgb Conc 33.4 g/gl (32-36); Mean Corpuscular Hgb 28.5 pg (27.0-32.0); Mean Corpuscular Volume 85.5 fL (80-94); Monocyte# 0.51 X10^3/uL; Monocyte% 9.1 % (0-10); Neutrophil # 3.01 X10^3/uL (2.7-7.7); Neutrophil % 53.6 % (47-70); POSITIVE COUNT NO; POSITIVE DIFFERENTIAL NO; POSITIVE MORPHOLOGY NO; Platelet Count 139 K/mm3 (150-450); RBC Distribution Width SD 37.6 fl (35.1-43.9); Red Blood Count 6.06 M/mm3 (4.6-6.2); White Blood Count 5.6 K/mm3 (4.4-11.0)
[2018-10-30 10:45] LABS: Anion Gap 5 (5-15); BUN 13 mg/dL (7-18); BUN/Creat Ratio 12.3 RATIO (10-20); Chloride 107 mmol/L (98-107); Creatinine, Serum 1.06 mg/dL (0.70-1.30); EST Glomerular Filtration Rate 92 mL/min (>60); Est Glom Filt Rate - Afr Amer 112 mL/min (>60); Estimated Creatinine Clearance 119.22 ml/min; Glucose 102 mg/dL (74-106); Magnesium 2.4 mg/dL (1.6-2.6); Potassium 3.8 mmol/L (3.5-5.1); Sodium Level 142 mmol/L (136-145); Thyroid Stim Hormone (TSH) 2.08 uIU/mL (0.358-3.74)
--- NOTE | 2018-10-30 11:45 | ECHOD_ITS ---
Reason For Study: ARRHYTHMIA Procedure This was a 2D Doppler, Color Flow transthoracic echocardiogram. The study was technically difficult. Due to arrhythmia, PT scanned supine. Exam performed portable in ED. Left Ventricle Normal size and thickness. The estimated ejection fraction is 45-50 %. Stage 1 diastolic dysfunction. There is mild to moderate global hypokinesis of the left ventricle. Right Ventricle Mildly dilated right ventricle. Normal systolic function. Atria Normal left atrium. Normal right atrium. Normal atrial septum. Mitral Valve The mitral valve is structurally normal. No prolapse or stenosis seen. Tricuspid Valve Normal tricuspid valve. Trivial tricuspid valve insufficiency. Right ventricular systolic pressure estimated to be 20 mmHg. Aortic Valve Normal aortic valve. Trisinus/trileaflet aortic valve. Pulmonic Valve Normal pulmonic valve. Great Vessels Normal aortic root. Normal arch. Normal inferior vena cava. Inferior vena cava collapse with sniff. Pericardium/Pleural No pericardial effusion. MMode/2D Measurements & Calculations LVIDd: 5.4 cm IVSd: 1.0 cm Ao root diam: 3.2 cm LVIDs: 4.0 cm LVPWd: 1.0 cm RVDd: 3.9 cm FS: 25.7 % LAV(MOD-bp): 39.8 ml LA A4 area: 15.0 cm2 LA dimension(2D): 3.3 cm LAV(MOD-bp) Indexed: 20.0 ml/m2 LAV(MOD-sp2): 37.7 ml LAV(MOD-sp4): 37.7 ml RA A4 area: 17.3 cm2 Doppler Measurements & Calculations MV E max madi: 76.9 cm/sec Lat Peak E' Madi: 12.6 cm/sec Med Peak E' Madi: 12.5 cm/sec MV A max madi: 58.0 cm/sec E/E' lat: 6.1 E/E' med: 6.1 MV E/A: 1.3 Ao V2 max: 86.1 cm/sec LV V1 max: 70.1 cm/sec PA V2 max: 94.2 cm/sec Ao max P.0 mmHg LV V1 max P.0 mmHg TR max madi: 193.0 cm/sec TR max P.9 mmHg Interpretation Summary The estimated ejection fraction is 45-50 %. There is mild to moderate global hypokinesis of the left ventricle. Stage 1 diastolic dysfunction. Trivial tricuspid valve insufficiency. Right ventricular systolic pressure estimated to be 20 mmHg. Frequent PVCs. Results conveyed to Dr Kim at 1410. There is no comparison study available. Ordering Physician: Sintia Daly Referring Physician: Tavon Cardoso Performed By: Selma Evans, [place], RVT
[2018-10-30 12:17] LABS: Amphetamine Urine VISTA NEGATIVE (<1000 ng/mL); Barbiturate Urine VISTA NEGATIVE (< 200 ng/mL); Benzodiazepine Urine VISTA NEGATIVE (< 200 ng/mL); Cocaine Urine VISTA NEGATIVE (< 300 ng/mL); Ecstacy Urine VISTA NEGATIVE (< 500 ng/mL); Methadone Urine VISTA NEGATIVE (< 300 ng/mL); PCP Urine VISTA NEGATIVE (< 25 ng/mL); THC Urine VISTA NEGATIVE (< 50 ng/mL); Vista UDS pH Range 7
[2018-10-30] MEDS: Metoprolol Tartrate 5 MG/5 ML Vial IV ×2 (12:34→16:07)
--- NOTE | 2018-10-30 12:47 | ED.DCSUM_ITS ---
- ER Visit Summary Date of Service: 10/30/18 Chief Complaint: [Palpitations] History of Present Illness: The patient is a 23 M [. Presents with palpitations that started yesterday. Patient states it has been happening about every hour. Becoming more frequent. Patient denies any chest pain. He denies any shortness of breath. He denies feeling lightheaded or dizzy. He does not feel presyncopal. Patient states that he has a sensation like there is a golf ball stuck in his throat when this happens. Patient had similar symptoms several years ago but palpitations were not as frequent. No family history of sudden cardiac or cardiac dysrhythmias. His not been ill recently. Denies recent travel. Patient states that there is a family history of hyperthyroidism which both his mother and his brother have and his mother wanted him to be evaluated for this.] Physical Examination: [HEENT-PERRLA, EOMI. Cranial nerves II through XII grossly intact. TMs clear. Mucous membranes moist. No adenopathy. Cardiovascular-regular rate and rhythm without murmur. Patient has occasional ectopy noted. Lungs-clear to auscultation, chest wall stable without crepitus or subcu emphysema Abdomen-normoactive bowel sounds, soft, nontender, no rebound or rigidity, no peritoneal signs. Extremities-intact ?4, normal range of motion, normal pulses, atraumatic] Test Results: [EKG obtained showed a sinus rhythm with a ventricular rate of 73 bpm with occasional PVCs. CBC with differential showed a white count of 5.6, hemoglobin 17, hematocrit 52, platelets 139. Chemistries unremarkable. TSH was normal at 2.08. Magnesium was 2.4. Chest x-ray was normal. Patient had a 2D cardiac echo obtained after discussion of case with brand activation manager on-call Dr. Yandel Campos. Patient was noted to have frequent PVCs as well as global hypokinesia of the left ventricle with reduced ejection fraction of 40-45%.] Emergency Department Course and Treatment: [Patient initially was medicated with 5 mg of Lopressor. I ordered a troponin which is pending.] Treatment Plan: [Admit for further workup and evaluation] Disposition: [Admit] Impression: [Cardiomyopathy Palpitations Nonsustained V. tach] This note was generated with [employer] software. It may contain incorrect words, spelling, and punctuation that were not noted in review of the chart prior to signing ED Disposition - Plan for ED Patient: Referrals: Leonardo Cardoso, [employer]-C [Primary Care Provider] -
--- NOTE | 2018-10-30 14:21 | NURSING ---
DR DUTTA FOR DR LOPEZ
--- NOTE | 2018-10-30 14:22 | NURSING ---
PCU CARDIOMYOPATHY PALPITATIONS [place]
--- NOTE | 2018-10-30 15:02 | HP.PCM_ITS ---
Problem List (1) Ventricular tachycardia Status: Acute (2) Rosacea Status: Chronic (3) GERD (gastroesophageal reflux disease) Status: Chronic History of Present Illness Date of Admission: 10/30/18 Chief Complaint: Palpitations The patient is a 23 year old M with a history of rosacea who presents with a 1 day history of intermittent palpitations. He states that he has had palpitations on occasion in the past, however yesterday he started having palpitations almost every hour. He presented today because he was also feeling a lump in his throat and was found to have unsustained V. tach on telemetry in the ER. He underwent an echocardiogram in the ER was found to have an EF of 45- 50% with mild to moderate global hypokinesis and therefore was recommended for admission. He denies any travel outside [facility], however he does have a history of drinking on the weekends for the last several years. He does not know how much he drinks per se, but he knows that he drinks enough to get a buzz and occasionally blacks out. He states that he can still feel his chest pounding though he denies any lightheadedness or dizziness. Past Medical History Past Medical History (Chronic Problems): Chronic Problems Rosacea (Chronic) GERD (gastroesophageal reflux disease) (Chronic) Allergies sulfamethoxazole [From Bactrim] Allergy (Verified 07/28/18 13:52) Rash trimethoprim [From Bactrim] Allergy (Verified 07/28/18 13:52) Rash Home Medications: Ambulatory Orders Medication Instructions Recorded NK 11/26/17 Surgical History: no surgical history Smoking Status: Never smoker Alcohol: Heavy - Binge drinks on the weekends Drugs: None - *Family History Maternal History Items: Heart Disease - His grandmother has had several brothers with heart disease at a young age and one brother had sudden cardiac of the think that was related to his alcohol use in his 40s. Paternal History Items: No pertinent history Review of Systems Constitutional: Denies: Chills, Fever, Weight Change HEENT: Denies: Head Aches, Sinus Congestion, Sinus Drainage Cardiovascular: Reports: Palpitations. Denies: Chest Pain Respiratory: Denies: Cough, Shortness of breath at rest, Sputum production Gastrointestinal: Denies: Abdominal Pain, Nausea, Vomiting Genitourinary: Denies: Dysuria Musculoskeletal: Denies: Joint Pain, Joint Tenderness Skin: Denies: Rash, Wounds Neurological: Denies: Numbness, Tingling, Focal weakness Psychiatric: Denies: Anxiety, Depression Hematologic/ Lymphatic: Denies: Easy Bruising, Easy Bleeding VTE Information - Inpt Only VTE Present on Admission: No Patient Problems: Active and Suspected Problems Ventricular tachycardia (Acute) - Physical Exam General: Alert, Oriented x3, Cooperative, No apparent distress HEENT: Atraumatic, PERRLA, EOMI, Normocephalic Oral: Moist Mucosa Neck: Supple, No JVD, Trachea Midline Lungs: Clear to auscultation, Normal air movement, No rhonchi, No wheeze, No rales Cardiovascular: No murmurs, Tachycardic, - - Irregular rhythm with frequent PVCs Abdomen: Soft, Non Tender, Non-Distended, No Hepato-splenomegaly Extremities: No edema, Capillary Refill Less than 3 Seconds Skin: - - Erythema on his face consistent with his history of rosacea Neurological: Neuro grossly intact, Sensory exam intact to light touch and pain Psych/Mental Status: Normal Affect, Appropriate Vital Signs Temp Pulse Resp BP Pulse Ox 96.8 F L 111 H 16 120/82 H 97 10/30/18 09:50 10/30/18 13:09 10/30/18 13:09 10/30/18 13:09 10/30/18 13:09 Oxygen Delivery Method Room Air Weight: 170 lb Body Mass Index (BMI) 23.0 Laboratory Tests Past 24 Hrs 10/30/18 10/30/18 10/30/18 10:15 10:15 12:00 WBC 5.6 RBC 6.06 Hgb 17.3 H Hct 51.8 MCV 85.5 MCH 28.5 MCHC 33.4 RDW 12.0 RDW Differential 37.6 Plt Count 139 L MPV 10.0 Immature Gran % (Auto) 0.200 Neut % (Auto) 53.6 Lymph % (Auto) 33.5 [place] % (Auto) 9.1 Eos % (Auto) 3.4 Baso % (Auto) 0.2 Absolute Neuts (auto) 3.0 Absolute Lymphs (auto) 1.88 Total Counted Not Reportable Sodium 142 Potassium 3.8 Chloride 107 Carbon Dioxide 30.0 Anion Gap 5 BUN 13 Creatinine 1.06 Estim Creat Clear Calc 119.22 Est GFR (MDRD) Af Amer 112 Est GFR (MDRD) Non-Af 92 BUN/Creatinine Ratio 12.3 Glucose 102 Calcium 9.0 Magnesium 2.4 Troponin I TSH 2.08 Urine Opiates Screen NEGATIVE Urine Methadone Screen NEGATIVE Ur Barbiturates Screen NEGATIVE Ur Phencyclidine Scrn NEGATIVE Ur Amphetamines Screen NEGATIVE U Methamphetamin-MDMA NEGATIVE U Benzodiazepines Scrn NEGATIVE Urine Cocaine Screen NEGATIVE U Cannabinoids Screen NEGATIVE Ur Drug Screen Comment 10/30/18 14:20 WBC RBC Hgb Hct MCV MCH MCHC RDW RDW Differential Plt Count MPV Immature Gran % (Auto) Neut % (Auto) Lymph % (Auto) [place] % (Auto) Eos % (Auto) Baso % (Auto) Absolute Neuts (auto) Absolute Lymphs (auto) Total Counted Sodium Potassium Chloride Carbon Dioxide Anion Gap BUN Creatinine Estim Creat Clear Calc Est GFR (MDRD) Af Amer Est GFR (MDRD) Non-Af BUN/Creatinine Ratio Glucose Calcium Magnesium Troponin I < 0.015 TSH Urine Opiates Screen Urine Methadone Screen Ur Barbiturates Screen Ur Phencyclidine Scrn Ur Amphetamines Screen U Methamphetamin-MDMA U Benzodiazepines Scrn Urine Cocaine Screen U Cannabinoids Screen Ur Drug Screen Comment Assessment/Plan All Active Problems Ventricular tachycardia (Acute) 1. Nonsustained ventricular tachycardia with possible systolic cardiomyopathy -We will consult cardiology with planned cardiac cath in the morning -If his cath is clean then it is possible this could be alcohol induced cardiomyopathy but he would also need an EP study -No foreign travel to think that this is infectious, and at his age unlikely to be infiltrative -We will start Coreg 3.125 mg twice daily to try to control his heart rate -Lopressor 5 mg IV every 6 as needed for heart rates greater than 120 -Electrolytes are normal -Continue with telemetry -Troponin and TSH were normal, he denies any chest pain 2. Rosacea -Currently stable -Is only on topical treatments periodically 3. GERD -Stable -Only occurs with certain foods therefore he is not on any daily prophylaxis DVT: Ambulation Code Visit Inpatient E&M: 17706 Subs Hosp L3
--- NOTE | 2018-10-30 16:16 | CASEMGMT ---
According to the [facility] website, the following are in-network tertiary facilities: [facility], [facility], [facility], [facility], [facility], [facility], [facility], [facility], [facility], and . Celestine ELY CM
[2018-10-30] MEDS: Carvedilol 3.125 MG TABLET PO (16:33)
--- NOTE | 2018-10-30 16:46 | CON.PCM_ITS ---
Problem List (1) Ventricular tachycardia Status: Acute Reason for Consult Date of Consultation: 10/30/18 Reason for Consultation: Palpitations, vtach History of Present Illness: The patient is a 23 year old M, with a history of palpitations as a young child, which then resolved during his adolescent and early adulthood. Patient is a non-smoker, drinks occasionally on the weekends, no IV drug use, no illicit drug use, no [id number] herbal medications, and a non-smoker. Patient does have a mother who has Graves' disease and had similar palpitations symptoms when she presented with Graves' disease. Patient has not traveled recently, and has no previous known cardiac history. Approximate 1 PM yesterday the patient began noticing palpitations radiating up into his mid throat, with no associated chest pain but positive shortness of breath when they occurred. His heart rate increased significantly, and it became somewhat irritating to the patient. When things did not improve today, his mother recommended he go to the emergency room. In the emergency room an EKG was performed which showed normal sinus rhythm with frequent PVCs, ventricular couplets, and several runs of nonsustained wide- complex tachycardia. An urgent echocardiogram was performed which showed possible global LV dysfunction of approximately 40-45%. Decreased sensitivity due to frequent PVCs. Normal RVSP was noted. On further history he denies any recent flulike illnesses, but has had a runny nose over the past couple of days. He denies any fevers, chills, new medications. He is on no medications at this time. While the patient has been admitted he has had several long runs of wide-complex tachycardia which have been sustained and noticeable to the patient. He is received 2 doses of IV Lopressor which have improved but not resolved his palpitations and PVCs. His potassium was 3.8 and it is being replaced. His tox screen was negative and his TSH was normal. First troponin is negative. [] Past Medical History Allergies/Adverse Reactions: Allergies sulfamethoxazole [From Bactrim] Allergy (Verified 07/28/18 13:52) Rash trimethoprim [From Bactrim] Allergy (Verified 07/28/18 13:52) Rash Home Medications: Ambulatory Orders Medication Instructions Recorded NK 11/26/17 Past Medical History (Chronic Problems): Chronic Problems Rosacea (Chronic) GERD (gastroesophageal reflux disease) (Chronic) Surgical History: no surgical history - *Family History Maternal History Items: Heart Disease - His grandmother has had several brothers with heart disease at a young age and one brother had sudden cardiac of the think that was related to his alcohol use in his 40s. Paternal History Items: No pertinent history Smoking Status: Never smoker Tobacco Use: Non-smoker Alcohol: Heavy - Binge drinks on the weekends Drugs: None Review of Systems - Review of Systems General: Denies: Fever, Night Sweats, Fatigue Cardiovascular: Reports: Shortness of Breath at Rest, Palpitations. Denies: Ch est Discomfort, Shortness of Breath, Orthopnea, PND, Peripheral Edema, Lightheadedness, Dizziness, Near Syncope, Syncope Respiratory: Denies: Cough, Sputum Production, Hemoptysis Gastrointestinal: Denies: Hematemesis, Hematochezia, Melena Genitourinary: Denies: Dysuria, Hematuria Skin: Denies: Rash Subjectve: Patient laying in bed, no acute distress. Objective: Vital Signs Temp Pulse Resp BP Pulse Ox 97.8 F 107 H 11 L 135/57 H 97 10/30/18 15:11 10/30/18 16:07 10/30/18 15:11 10/30/18 15:11 10/30/18 15:11 Oxygen Delivery Method Room Air Weight: 163 lb 5.8 oz Body Mass Index (BMI) 22.1 General: Awake, Alert, Oriented x 3 HEENT: PERRL, EOMI, Sclera Non Icteric Neck: Supple, Good ROM, No Lymph Node Enlargement Lungs: Clear to auscultation Cardiovascular: Regular Rhythm, Premature Ectopic Beats, Normal S1, Normal S2, No Murmurs, No Rubs, No Gallops Vascular: No Carotid Bruits, Normal Femoral Pulses, Normal Radial Pulses, Normal Dorsalis Pedal Pulse, Normal Posterior Tibial Pulses Abdomen: Bowel Sounds Present, Soft, Non Tender, No HSM, No Organomegaly Extremities: No Cyanosis, No Clubbing, No edema Neurological: No Focal Motor or Sensory Deficit 10/30/18 10:15: WBC 5.6, RBC 6.06, Hgb 17.3 H, Hct 51.8, MCV 85.5, MCH 28.5, MCHC 33.4, RDW 12.0, RDW Differential 37.6, Plt Count 139 L, MPV 10.0, Immature Gran % (Auto) 0.200, Neut % (Auto) 53.6, Lymph % (Auto) 33.5, [place] % (Auto) 9.1, Eos % (Auto) 3.4, Baso % (Auto) 0.2, Absolute Neuts (auto) 3.0, Total Counted Not Reportable 10/30/18 10:15: Sodium 142, Potassium 3.8, Chloride 107, Carbon Dioxide 30.0, Anion Gap 5, BUN 13, Creatinine 1.06, Est GFR (MDRD) Af Amer 112, Est GFR (MDRD) Non-Af 92, BUN/Creatinine Ratio 12.3, Glucose 102, Calcium 9.0, Magnesium 2.4 10/30/18 14:20: Troponin I < 0.015 Rhythm: EKG: As above ECHO: As above Stress Test: Cardiac Cath: Pending PCI: CT Surgery: Holter monitor: EPS: PPM: CXR: Chest CT Scan: Assessment/Plan 1. Nonsustained ventricular tachycardia: The patient presents with new onset nonsustained wide-complex/ventricular tachycardia with symptomatic palpitations. I am unclear as to the origin of the patient's wide-complex tachycardia but he does have evidence on echocardiogram of mild to moderate global LV dysfunction. I am uncertain whether his LV dysfunction as a result of his palpitations or vice versa. Patient does not smoke but does have a history of drinking alcohol in the past. In addition he has a history in his family of what appears to be sudden cardiac from possible alcoholic cardiomyopathy, and his mother has had Graves' disease with similar palpitations as a presentation. His TSH is normal. Out of an abundance of caution, I recommended the patient undergo a diagnostic coronary angiogram tomorrow morning. The risks/benefits of the procedure were thoroughly spent with the patient and his mother over the phone, including specific attention to lack of on-site surgical backup, and informed consent was obtained. Would recommend continuing baby aspirin. In the meantime we will start the patient on Coreg 3.125 mill grams p.o. twice daily and titrate up from there for PVC and wide-complex tachycardia suppression. He has received 2 doses of IV Lopressor with significant improvement of his PVCs however they have not quite resolved. Would recommend replacement of his potassium to keep it above 4.0, and replacement of his magnesium to keep above 2.0. Would recommend ruling out for myocardial infarction with serial troponins x3. His first troponin is negative. If the patient has persistent wide-complex tachycardia and particularly if it is hypotensive, and have a low threshold to initiate amiodarone therapy for wide- complex tachycardia suppression. We are unable to control this with medical therapy he may require transfer to tertiary care center for additional EP consultation. 2. Alcohol use: I strongly recommended the patient to discontinue all alcohol products which may be contributing to his PVCs and arrhythmias. 3. Thank you very much for the opportunity to participate in the cardiac care of your patient. Consultation time took place between 340 and 4:15 PM. Code Visit Inpatient E&M: 81740 Init Hosp L2
--- NOTE | 2018-10-30 17:04 | EKGRS_ITS ---
Test Reason : Blood Pressure : / mmHG Vent. Rate : 066 BPM Atrial Rate : 066 BPM P-R Int : 190 ms QRS Dur : 098 ms QT Int : 410 ms P-R-T Axes : 045 084 032 degrees QTc Int : 429 ms Sinus rhythm with occasional Premature ventricular complexes Otherwise normal ECG Confirmed by CARIE HINKLE, JESSICA ([id number]), editor book URIEL WHITING ([id number]) on 11/01/2018 9:45:18 AM Referred By: Braeden Echavarria Confirmed By:JESSICA DARNELL MD
--- NOTE | 2018-10-30 17:08 | NURSING ---
multiple runs of PVC's/VTACH. pt able to feel palpitations, otherwise asymptomatic. Hospitalist & java lead engineer aware.
[2018-10-31] VITALS (37 sets, daily range): BP systolic 83–134; BP diastolic 48–90; PULSE 47–75; RESP 13–20; TEMP 36.3–36.9; O2SAT 96–100
[2018-10-31 00:41] LABS: Bacteria 0 SEEN /hpf (None Seen); Mucous, Urine 0 SEEN /hpf (<or=2+); Red Blood Cells-Urine 0 SEEN /hpf (0-5); White Blood Cells 0 SEEN /hpf (0-5)
[2018-10-31 00:42] LABS: Color, Urine Yellow (Yellow); Glucose, Dipstick Normal (Normal); Ketone-Dipstick Negative (Negative); Leukocyte Esterase-Dipstick Negative /ul (Negative); Nitrite-Dipstick Negative (Negative); Occult Blood-Urine Negative /ul (Negative); Protein-Dipstick Negative (Negative); Urine Bilirubin Dipstick Negative (Negative); Urine Clarity Clear (Clear); Urine Urobilinogen Normal (Normal)
[2018-10-31 00:48] LABS: Squamous Epithelial Cells - UA 0-5 SEEN /hpf (0-5)
[2018-10-31 05:49] LABS: Absolute Neutrophil Count 3.4 X10^3/uL (2.0-7.7); Basophil# 0.02 X10^3/uL; Basophil% 0.3 % (0-1); Eosinophil# 0.29 X10^3/uL; Eosinophils% 4.3 % (0-5); Hematocrit 47.7 % (40-54); Lymphocyte % 35.9 % (19-41); Mean Corp Hgb Conc 33.5 g/gl (32-36); Mean Corpuscular Hgb 28.9 pg (27.0-32.0); Mean Corpuscular Volume 86.3 fL (80-94); Mean Platelet Vol. 10.3 fl (6.2-12.0); Monocyte# 0.54 X10^3/uL; Monocyte% 8.1 % (0-10); Neutrophil # 3.42 X10^3/uL (2.7-7.7); Neutrophil % 51.3 % (47-70); Platelet Count 144 K/mm3 (150-450); RBC Distribution Width CV 11.8 % (11.6-14.6); Red Blood Count 5.53 M/mm3 (4.6-6.2); White Blood Count 6.7 K/mm3 (4.4-11.0)
[2018-10-31 05:51] LABS: POSITIVE COUNT NO; POSITIVE DIFFERENTIAL NO; POSITIVE MORPHOLOGY NO
[2018-10-31 05:52] LABS: Anion Gap 6 (5-15); BUN 14 mg/dL (7-18); BUN/Creat Ratio 13.7 RATIO (10-20); Calcium,Total 8.7 mg/dL (8.5-10.1); Chloride 104 mmol/L (98-107); Creatinine, Serum 1.02 mg/dL (0.70-1.30); EST Glomerular Filtration Rate 97 mL/min (>60); Est Glom Filt Rate - Afr Amer 117 mL/min (>60); Estimated Creatinine Clearance 119.06 ml/min; Glucose 98 mg/dL (74-106); Potassium 3.9 mmol/L (3.5-5.1); Sodium Level 139 mmol/L (136-145)
[2018-10-31 05:53] LABS: Prothrombin Time (Protime)PT. 13.2 SECONDS (11.7-14.9)
--- NOTE | 2018-10-31 05:55 | EKG12_ITS ---
Test Reason : AM Blood Pressure : / mmHG Vent. Rate : 065 BPM Atrial Rate : 065 BPM P-R Int : 210 ms QRS Dur : 094 ms QT Int : 462 ms P-R-T Axes : 054 084 059 degrees QTc Int : 480 ms Sinus rhythm with 1st degree A-V block with occasional and consecutive Premature ventricular complexe s Confirmed by CARIE HINKLE, JESSICA ([id number]), purchasing expeditor URIEL WHITING ([id number]) on 11/01/2018 9:43:54 AM Referred By: Braeden Echavarria Confirmed By:JESSICA DARNELL MD
[2018-10-31 06:16] LABS: Partial Thromboplast Time 28.6 Seconds (24.1-36.2)
[2018-10-31] MEDS: Aspirin 81 MG TAB.CHEW PO (06:35)
[2018-10-31] MEDS: Carvedilol 3.125 MG TABLET PO ×2 (06:36→16:17)
[2018-10-31] MEDS: DiphenhydrAMINE 25 MG Capsule 50 MG PO (10:08)
--- NOTE | 2018-10-31 10:59 | CL.D_ITS ---
Patient Name: CECILIA KEYS Study Date: 10/31/2018 Performing: Cecilia Campos MD Ht: 72.04 inches 183 cm : 1995 Wt: 163.14 lbs 74 kg Age: 23 Gender: male BSA: 1.95 PROCEDURE(S) PERFORMED [id number]/LV CLINICAL PROFILE AND INDICATIONS Indications: Suspected CAD, Cardiac Arrythmia, Cardiomyopathy Heart Failure: NYHA Class: 1, Newly Diagnosed: Yes, Heart Failure Type: Systolic Stress/Imaging Stress/Image Study Performed: No Angina Classification Anginal Classification w/in 2 Weeks: No symptoms CAD Presentations: No Sxs, no angina. Other: Palpitations. 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 Continue coreg. D/w DR Mcclure. Manual sheath removal. ETOH avoidance/cessation. Repeat echo in 3 months at conclusion of cardiac rehab. DESCRIPTION OF PROCEDURE The patient arrived to the procedure lab. The risks and benefits of the procedure as well as a full d escription of our services here and current unavailability of surgical backup were fully explained to the patient and/or their significant other prior to the catheterization. The Timeout was completed, verifying the correct patient and procedure. The patient's procedural site was prepped and draped in the usual fashion. Local anesthetic was given subcutaneously to right groin region with Lidocaine 2%. Using a modified Seldinger technique, arterial access was obtained via the right femoral artery, a 4 Fr sheath was inserted Left Coronary Artery selective angiography was performed in multiple views us ing a 4 Fr. JL5 catheter. Right Coronary Artery selective angiography was then performed in multiple views using a 4 Fr. 3DRC catheter. Left Ventriculography was performed in SOLIS projection using a 4 Fr . Pigtail catheter. LV to AO pullback pressures were then recorded.The arterial sheath was pulled and manual compression applied until hemostasis is achieved. CORONARY ANGIOGRAPHY DOMINANCE: Right Dominant LEFT HEART ASSESSMENT Left Ventricular Ejection Fraction: by LV Gram 50 % Global Hypokinesis - Mild Depressed Left Ventricular systolic function LVEDP: 9 mmHg Normal Left Ventricular End Diastolic Pressure Cardiomyopathy: Congestive LEFT MAIN: Angiographically normal LEFT ANTERIOR DECENDING ARTERY: Angiographically normal CIRCUMFLEX ARTERY: Angiographically normal RIGHT CORONARY ARTERY: Angiographically normal COMPLICATIONS No Complications PROCEDURE MEDICATIONS Oxygen: 2 L/min via nasal cannula Amiodarone 500mg / 100ml D5W @ 0.5 mg/min IV cont. from [facility] @ 10/31/2018 10:32:21 SUMMARY OF HEMODYNAMIC DATA Time AIR REST ECG 10:26:29 AO 124/76 (97) SA 10:36:05 LV 122/-13, 9 10:42:45 LV 123/-12, 9 10:42:51 LVp 123/-14, 8 10:43:03 AOp 119/76 (91) 10:43:08 Signed By Cecilia Campos MD On 10/31/2018 10:58:59 Cecilia Campos MD
--- NOTE | 2018-10-31 11:08 | CASEMGMT ---
This RN CM to room to complete CM assessment and pt is out of the dept for testing at this time. Will attempt again later. [place] RN CM
--- NOTE | 2018-10-31 13:13 | PCM.PROGNOTE ---
<Bob Morris - Last Filed: 10/31/18 13:13> Patient Problems: Active and Suspected Problems Ventricular tachycardia (Acute) Subjective: Pt seen and examined prior to cath. no chest pain SOB, LH, dizziness, palp. resting comfortably in bed NAD. Family hx of multiple people with early heart disease. Family hx of multiple people with autoimmune disease. He does drink occasionally. No stimulant use. No defects or heart issues as an . - Physical Exam General: Alert, Oriented x3, Cooperative HEENT: Atraumatic, PERRLA, EOMI, Normocephalic Neck: Supple, No JVD, Negative Carotid Bruits Lungs: Clear to auscultation, Normal air movement Cardiovascular: Regular rate, No murmurs Abdomen: Bowel Sounds Present, Soft, Non Tender Extremities: No edema, Capillary Refill Less than 3 Seconds Skin: No rashes, No breakdown Musculoskeletal: No Tenderness to Palpation of Joints or Extremities Neurological: Cranial nerves II-XII grossly intact Psych/Mental Status: Normal Affect, Appropriate, Alert and oriented to time, place, person, mood and affect Vital Signs Temp Pulse Resp BP Pulse Ox 98 F 66 16 112/82 H 100 10/31/18 09:00 10/31/18 12:15 10/31/18 12:15 10/31/18 12:15 10/31/18 12:15 Oxygen Delivery Method Room Air Weight: 163 lb 5.8 oz Body Mass Index (BMI) 22.1 Intake and Output for Last 24 Hours 10/29/18 10/30/18 10/31/18 23:59 23:59 23:59 Intake Total 717.7 / 717.7 137.3 / 137.3 Output Total 200 / 200 600 / 600 Balance 517.7 / 517.7 -462.7 / -462.7 Laboratory Tests Past 24 Hrs 10/30/18 10/30/18 10/31/18 12:00 14:20 05:10 WBC 6.7 RBC 5.53 Hgb 16.0 Hct 47.7 MCV 86.3 MCH 28.9 MCHC 33.5 RDW 11.8 RDW Differential 37.0 Plt Count 144 L MPV 10.3 Immature Gran % (Auto) 0.100 Neut % (Auto) 51.3 Lymph % (Auto) 35.9 Montgomery % (Auto) 8.1 Eos % (Auto) 4.3 Baso % (Auto) 0.3 Absolute Neuts (auto) 3.4 Absolute Lymphs (auto) 2.40 Total Counted Not Reportable PT INR APTT Sodium Potassium Chloride Carbon Dioxide Anion Gap BUN Creatinine Estim Creat Clear Calc Est GFR (MDRD) Af Amer Est GFR (MDRD) Non-Af BUN/Creatinine Ratio Glucose Calcium Troponin I < 0.015 Urine Color Yellow Urine Clarity Clear Urine pH 7.0 Ur Specific [place] 1.010 Urine Protein Negative Urine Glucose (UA) Normal Urine Ketones Negative Urine Occult Blood Negative Urine Nitrite Negative Urine Bilirubin Negative Urine Urobilinogen Normal Ur Leukocyte Esterase Negative Urine RBC 0 SEEN Urine WBC 0 SEEN Ur Squamous Epith Cells 0-5 SEEN Urine Bacteria 0 SEEN Urine Mucus 0 SEEN 10/31/18 10/31/18 05:10 05:10 WBC RBC Hgb Hct MCV MCH MCHC RDW RDW Differential Plt Count MPV Immature Gran % (Auto) Neut % (Auto) Lymph % (Auto) Montgomery % (Auto) Eos % (Auto) Baso % (Auto) Absolute Neuts (auto) Absolute Lymphs (auto) Total Counted PT 13.2 INR 1.0 APTT 28.6 Sodium 139 Potassium 3.9 Chloride 104 Carbon Dioxide 29.0 Anion Gap 6 BUN 14 Creatinine 1.02 Estim Creat Clear Calc 119.06 Est GFR (MDRD) Af Amer 117 Est GFR (MDRD) Non-Af 97 BUN/Creatinine Ratio 13.7 Glucose 98 Calcium 8.7 Troponin I Urine Color Urine Clarity Urine pH Ur Specific [place] Urine Protein Urine Glucose (UA) Urine Ketones Urine Occult Blood Urine Nitrite Urine Bilirubin Urine Urobilinogen Ur Leukocyte Esterase Urine RBC Urine WBC Ur Squamous Epith Cells Urine Bacteria Urine Mucus Medical Necessity - Tobacco Use Smoking Status: Never smoker Tobacco Use: Non-smoker Assessment/Plan All Active Problems Ventricular tachycardia (Acute) 1. 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 Negative cxr. EF 45-50% stage 1 diastolic dysfunction. RVSP 20. Normal coronaries per cath. EtOH vs viral CM. Recommended EtOH discontinuation. He did recently have a cold. TSH. UA and tox screen negative. 2. Vtach - now NSR. on Amio + Lopressor. This patient was seen by Bob Morris PA-C under the supervision of Dr. Mcclure. <Aravind Mcclure - Last Filed: 10/31/18 14:15> Subjective: He has had PVCs in the past when he was a sophomore in high school but this is different as it was more persistent. - Physical Exam General: Alert, Cooperative HEENT: Atraumatic, Normocephalic Neck: Supple, Negative Carotid Bruits Lungs: Clear to auscultation, Normal air movement Cardiovascular: Regular rate, No murmurs Abdomen: Bowel Sounds Present, Non Tender Skin: No rashes, No breakdown Psych/Mental Status: Normal Affect, Appropriate Vital Signs Temp Pulse Resp BP Pulse Ox 36.6 C 75 16 124/61 H 100 10/31/18 09:00 10/31/18 13:15 10/31/18 13:15 10/31/18 13:15 10/31/18 13:15 Oxygen Delivery Method Room Air Weight: 74.1 kg Body Mass Index (BMI) 22.1 Intake and Output for Last 24 Hours 10/29/18 10/30/18 10/31/18 23:59 23:59 23:59 Intake Total 717.7 / 717.7 257.3 / 257.3 Output Total 200 / 200 600 / 600 Balance 517.7 / 517.7 -342.7 / -342.7 Laboratory Tests Past 24 Hrs 10/30/18 10/30/18 10/31/18 12:00 14:20 05:10 WBC 6.7 RBC 5.53 Hgb 16.0 Hct 47.7 MCV 86.3 MCH 28.9 MCHC 33.5 RDW 11.8 RDW Differential 37.0 Plt Count 144 L MPV 10.3 Immature Gran % (Auto) 0.100 Neut % (Auto) 51.3 Lymph % (Auto) 35.9 Montgomery % (Auto) 8.1 Eos % (Auto) 4.3 Baso % (Auto) 0.3 Absolute Neuts (auto) 3.4 Absolute Lymphs (auto) 2.40 Total Counted Not Reportable PT INR APTT Sodium Potassium Chloride Carbon Dioxide Anion Gap BUN Creatinine Estim Creat Clear Calc Est GFR (MDRD) Af Amer Est GFR (MDRD) Non-Af BUN/Creatinine Ratio Glucose Calcium Troponin I < 0.015 Urine Color Yellow Urine Clarity Clear Urine pH 7.0 Ur Specific [place] 1.010 Urine Protein Negative Urine Glucose (UA) Normal Urine Ketones Negative Urine Occult Blood Negative Urine Nitrite Negative Urine Bilirubin Negative Urine Urobilinogen Normal Ur Leukocyte Esterase Negative Urine RBC 0 SEEN Urine WBC 0 SEEN Ur Squamous Epith Cells 0-5 SEEN Urine Bacteria 0 SEEN Urine Mucus 0 SEEN 10/31/18 10/31/18 05:10 05:10 WBC RBC Hgb Hct MCV MCH MCHC RDW RDW Differential Plt Count MPV Immature Gran % (Auto) Neut % (Auto) Lymph % (Auto) Montgomery % (Auto) Eos % (Auto) Baso % (Auto) Absolute Neuts (auto) Absolute Lymphs (auto) Total Counted PT 13.2 INR 1.0 APTT 28.6 Sodium 139 Potassium 3.9 Chloride 104 Carbon Dioxide 29.0 Anion Gap 6 BUN 14 Creatinine 1.02 Estim Creat Clear Calc 119.06 Est GFR (MDRD) Af Amer 117 Est GFR (MDRD) Non-Af 97 BUN/Creatinine Ratio 13.7 Glucose 98 Calcium 8.7 Troponin I Urine Color Urine Clarity Urine pH Ur Specific [place] Urine Protein Urine Glucose (UA) Urine Ketones Urine Occult Blood Urine Nitrite Urine Bilirubin Urine Urobilinogen Ur Leukocyte Esterase Urine RBC Urine WBC Ur Squamous Epith Cells Urine Bacteria Urine Mucus Assessment/Plan Patient seen and examined independently. Data reviewed. I agree with the above note by the physician medical receptionist assistant. 1. Ventricular tachycardia: Currently normal sinus rhythm. Continue with amiodarone drip as well as Lopressor. Appreciate cardiology input. 2. Cardiomyopathy: Unclear etiology but could be alcohol versus viral versus idiopathic. Patient does endorse that he does have periods where he drinks excessively to the point of blacking out at times. Explained that peripherally alcohol should be removed but certainly in moderation occasion for now until this can be further clarified. Code Visit Inpatient E&M: 41633 Subs Hosp L2
--- NOTE | 2018-10-31 13:30 | CASEMGMT ---
SOLIS GAGE assessment: Face to Face with patient for initial transition planning/care coordination assessment. SOLIS GAGE introduced self and role at [facility], pt voices understanding and consents to assessment at this time. Pt is sitting up in bed in no distress at this time. Pt is A/Ox4 at this time and answers all questions appropriately at this time. Care providers, pharmacy, and demographics verified/updated at this time. PCP: Janae Specialists: Pt states currently has no specialists. [facility]erred [facility]acy[facility] Insurance: [employer] ([employer]) Prescription Benefit: [employer] [employer]CD Living Will/HPOA: Pt states does not have LW/HPOA but is interested in AD info at this time. AD info provided to pt at this time with non emergency services ambulance driver pamphlet. LNOK: Gali Flaherty, mother; Yandel Flaherty, father Living Arrangements: Pt states lives with mother in home and states no concerns at home at this time. Pt states is independent with ADL's. Transportation: Pt states drives self and states no transportation concerns at this time. DME/HHC: Pt states has no current DME or need for any at this time. Pt states no hx of HHC or SNF in the past. Pt states no concerns with going home at time of discharge. 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 Pt states does not smoke but does drink ETOH on the weekends. Pt states no further concerns/needs at this time. CM to follow for any further discharge planning/needs. Advised pt to ask for CM if any further questions/concerns/needs arise, voices understanding. Plan: Home [place] SOLIS GAGE
--- NOTE | 2018-10-31 14:32 | CHAPLAIN ---
Type of Pastoral Visit _x__ Initial Visit ___ Follow-up Visit ___ On-call Visit ___ General Patient Visit ___ Spiritual Assessment ___ Family Conference ___ Bereavement ___ Rapid Response ___ Code Blue ___ Other (describe below) Pastoral Care Referral From _x__ Patient ___ Family ___ Nurse ___ Physician ___ Service Parts Coordinator ___ Blindstitch Lapel Padder ___ Other (describe below) Sacrament/Intervention _x__ Active listening ___ Anointing ___ Confucianism ___ Bereavement ___ Communion ___ Madiha exploration ___ ___ Life review _x__ Prayer ___ Reconciliation ___ Sacrament of Sick _x__ Supportive presence ___ Wedding ___ Other (describe below) Pastoral Comments
[2018-10-31] MEDS: Amiodarone 200 MG Tablet 400 MG PO (16:17)
[2018-10-31] MEDS: 0.9% NaCl Peripheral Flush Adult/Peds IV (22:15)
[2018-11-01 02:58] VITALS: PULSE 53
[2018-11-01 03:00] VITALS: BP 111/57; PULSE 58; RESP 16; TEMP 36.2; O2SAT 98
--- NOTE | 2018-11-01 05:55 | EKG12_ITS ---
Test Reason : AM EKG Blood Pressure : / mmHG Vent. Rate : 052 BPM Atrial Rate : 052 BPM P-R Int : 198 ms QRS Dur : 102 ms QT Int : 472 ms P-R-T Axes : 035 074 060 degrees QTc Int : 438 ms Sinus bradycardia Nonspecific T wave abnormality Abnormal ECG When compared with ECG of 31-OCT-2018 05:21, MANUAL COMPARISON REQUIRED, DATA IS UNCONFIRMED Confirmed by CARIE HINKLE, JESSICA ([id number]), technical writer and editor URIEL WHITING ([id number]) on 11/04/2018 1:12:40 PM Referred By: Braeden Echavarria Confirmed By:JESSICA DARNELL MD
[2018-11-01 07:00] VITALS: PULSE 61
[2018-11-01 08:24] VITALS: BP 109/63; PULSE 58; RESP 16; TEMP 36.8; O2SAT 95
[2018-11-01] MEDS: Carvedilol 3.125 MG TABLET PO (08:28)
[2018-11-01] MEDS: Aspirin 81 MG TAB.CHEW PO (08:28)
[2018-11-01] MEDS: Amiodarone 200 MG Tablet 400 MG PO (08:28)
--- NOTE | 2018-11-01 09:00 | PCM.PN.CARD ---
Subjectve: Patient feeling much better, telemetry showed normal sinus rhythm with rare PVCs and rare ventricular couplet. No additional V. tach storm. QT corrected this morning is around 430 ms. Patient has sinus bradycardia without symptoms. Right groin is clean/dry/intact without evidence of thrills, bruits or hematoma. Objective: Vital Signs Temp Pulse Resp BP Pulse Ox 98.3 F 58 L 16 109/63 95 11/01/18 08:24 11/01/18 08:24 11/01/18 08:24 11/01/18 08:24 11/01/18 08:24 Oxygen Delivery Method Room Air Weight: 163 lb 5.8 oz Body Mass Index (BMI) 22.1 Intake and Output for Last 24 Hours 10/30/18 10/31/18 11/01/18 23:59 23:59 23:59 Intake Total 717.7 / 717.7 737.3 / 737.3 717 / 717 Output Total 200 / 200 600 / 600 Balance 517.7 / 517.7 137.3 / 137.3 717 / 717 General: Awake, Alert, Oriented x 3 HEENT: PERRL, EOMI, Sclera Non Icteric Neck: Supple, Good ROM, No Lymph Node Enlargement Lungs: Clear to auscultation Cardiovascular: Regular Rhythm, Normal S1, Normal S2, No Murmurs, No Rubs, No Gallops Vascular: No Carotid Bruits, Normal Femoral Pulses, Normal Radial Pulses, Normal Dorsalis Pedal Pulse, Normal Posterior Tibial Pulses Abdomen: Bowel Sounds Present, Soft, Non Tender, No HSM, No Organomegaly Extremities: No Cyanosis, No Clubbing, No edema Neurological: No Focal Motor or Sensory Deficit Rhythm: EKG: ECHO: Stress Test: Cardiac Cath: PCI: CT Surgery: Holter monitor: EPS: PPM: CXR: Chest CT Scan: Medical Necessity - Tobacco Use Smoking Status: Never smoker Tobacco Use: Non-smoker Assessment/Plan 1. Nonsustained ventricular tachycardia: The patient presents with new onset sustained wide-complex/ventricular tachycardia with symptomatic palpitations. I am unclear as to the origin of the patient's wide-complex tachycardia but he does have evidence on echocardiogram of mild to moderate global LV dysfunction. I am uncertain whether his LV dysfunction as a result of his palpitations or vice versa. Patient does not smoke but does have a history of drinking alcohol in the past. In addition he has a history in his family of what appears to be sudden cardiac from possible alcoholic cardiomyopathy, and his mother has had Graves' disease with similar palpitations as a presentation. His TSH is normal. Out of an abundance of caution, I recommended the patient undergo a diagnostic coronary angiogram which took place on 10/31/18. His coronary arteries were normal, and he had mild global LV dysfunction with an EF around 50%. The patient's V. tach storm has markedly improved with a combination of low-dose Coreg, and amiodarone IV. He has transition to asymptomatic sinus bradycardia. Recommend decreasing his amiodarone to 200 mg p.o. daily for approximately 1 month's time. In addition he will continue Coreg 3.125 mg p.o. twice daily for both heart rate control and mild LV dysfunction. He will follow-up in the office in 1 week's time for an EKG, blood pressure and pulse check. If the patient has symptomatic bradycardia over the weekend I would recommend discontinuation of his amiodarone but continuing his beta-wilian. 2. Alcohol use: I strongly recommended the patient to discontinue all alcohol products which may be contributing to his PVCs and arrhythmias. Also recommend avoiding caffeinated beverages or other illicit substances that may precipitate ventricular arrhythmias. 3. Thank you very much for the opportunity to participate in the cardiac care of your patient. Patient may be discharged home. He will follow-up with Dr. Campos going forward. Code Visit Inpatient E&M: 76011 Subs Hosp L2
--- NOTE | 2018-11-01 09:20 | CASEMGMT ---
SW gave patient advance directives per his request. JENNIFER explained the documents to him and gave him the rack card for [employer]. Tiffany AVILA MSW
[2018-11-01 11:00] VITALS: PULSE 59
--- NOTE | 2018-11-01 11:52 | DCINST_ITS ---
- Discharge Diagnoses Current Active Problems: Current Active and Chronic Problems Ventricular tachycardia (Acute) Rosacea (Chronic) GERD (gastroesophageal reflux disease) (Chronic) You will use the following diet at home:: Cardiac, Other - No alcohol. Your food should be the consistency of: Regular Your liquids should be the consistency of: Regular/Thin Discharge Activity: Return to Normal Activity Allergies/Adverse Reactions: Allergies sulfamethoxazole [From Bactrim] Allergy (Verified 07/28/18 13:52) Rash trimethoprim [From Bactrim] Allergy (Verified 07/28/18 13:52) Rash Medications to take at Discharge Amiodarone HCl [Cordarone] 200 mg PO DAILY #30 tablet 11/01/18 Aspirin [Aspirin, Baby] 81 mg PO DAILY@0800 tab.chew 11/01/18 Carvedilol [Coreg (Beta Georgina)] 3.125 mg PO BIDCM #60 tablet 11/01/18 The following prescriptions were given: Amiodarone HCl [Cordarone] 200 mg PO DAILY #30 tablet Carvedilol [Coreg (Beta Georgina)] 3.125 mg PO BIDCM #60 tablet Primary Care Physician: Leonardo Cardoso, MARYANN-C [Primary Care Provider] - Please follow up with your Primary Care Physician in: 1-2 weeks Test Results: Test results from this visit will be discussed in further detail at your follow- up appointment, if applicable. Please Follow Up With: MARIA ANTONIA PLUNKETT When: As directed Please Follow Up With: CECILIA WALKER When: As directed Proposed Discharge Date: 11/01/18
--- NOTE | 2018-11-01 13:59 | PCM.DC.SUM ---
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 Echo: Interpretation Summary The estimated ejection fraction is 45-50 %. There is mild to moderate global hypokinesis of the left ventricle. Stage 1 diastolic dysfunction. Trivial tricuspid valve insufficiency. Right ventricular systolic pressure estimated to be 20 mmHg. Frequent PVCs. Results conveyed to Dr Kim at 1410. There is no comparison study available. 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 Continue coreg. D/w DR Mcclure. Manual sheath removal. ETOH avoidance/cessation. Repeat echo in 3 months at conclusion of cardiac rehab. Consultations: CardiologyFelisha Operations: None Procedures: 2-D Echocardiogram, Cardiac catheterization Summary of Care Provided: Hospital course: The patient is a 23 year old M with past medical history of GERD and rosacea, who presented to the emergency room with complaints of heart palpitations. He was found to be in sustained ventricular tachycardia, he was given Lopressor and started on Coreg. An echocardiogram was obtained which demonstrated a reduced ejection fraction of 40-45%. There is moderate to marked global hypokinesis. Cardiology was consulted and he was admitted to the PCU and placed on telemetry. CXR, UA, and Tox Screen were negative. He was started on an amiodarone drip. The following day he underwent a cardiac catheterization was found to have clean coronary arteries. He was felt to have cardiomyopathy possibly secondary to alcohol use as he did admit to drinking enough to black out on occasion, or possibly a viral cardiomyopathy as he recently had a cold. He was started on Coreg, amiodarone, aspirin. He was discharged home in stable condition, he will need to follow-up with cardiology as directed, and follow-up with his PCP in 1-2 weeks. We recommended abstinence from alcohol at [place]. This patient was seen by Bob Morris PA-C under the supervision of Doctor Ren. [] - Physical Exam General: Alert, Oriented x3, Cooperative HEENT: Atraumatic, PERRLA, EOMI, Normocephalic Neck: Supple, No JVD, Negative Carotid Bruits Lungs: Clear to auscultation, Normal air movement Cardiovascular: Regular rate, No murmurs Abdomen: Bowel Sounds Present, Soft, Non Tender Extremities: No edema, Capillary Refill Less than 3 Seconds Skin: No rashes, No breakdown Musculoskeletal: No Tenderness to Palpation of Joints or Extremities Neurological: Cranial nerves II-XII grossly intact Psych/Mental Status: Normal Affect, Appropriate Vital Signs Temp Pulse Resp BP Pulse Ox 98.3 F 59 L 16 109/63 95 11/01/18 08:24 11/01/18 11:00 11/01/18 08:24 11/01/18 08:24 11/01/18 08:24 Oxygen Delivery Method Room Air Weight: 163 lb 5.8 oz Body Mass Index (BMI) 22.1 Intake and Output for Last 24 Hours 10/30/18 10/31/18 11/01/18 23:59 23:59 23:59 Intake Total 717.7 / 717.7 737.3 / 737.3 121 / 1217 Output Total 200 / 200 600 / 600 Balance 517.7 / 517.7 137.3 / 137.3 121 / 1217 Discharge Diet: Low fat/ Low Cholesterol, 2000 mg Sodium Diet Discharge Activity: Return to Normal Activity Home Medications: Medications to take at Discharge Amiodarone HCl [Cordarone] 200 mg PO DAILY #30 tablet 11/01/18 Aspirin [Aspirin, Baby] 81 mg PO DAILY@0800 tab.chew 11/01/18 Carvedilol [Coreg (Beta Georgina)] 3.125 mg PO BIDCM #60 tablet 11/01/18 Following Prescrptions Were Given to Patient: Amiodarone HCl [Cordarone] 200 mg PO DAILY #30 tablet Carvedilol [Coreg (Beta Georgina)] 3.125 mg PO BIDCM #60 tablet Primary Care Physician: Leonardo Cardoso, ELECTRONIC FUNDS TRANSFER COORDINATOR-C [Primary Care Provider] - Please follow up with your Primary Care Physician in: 1-2 weeks Please Follow Up With: MARIA ANTONIA PLUNKETT When: As directed Please Follow Up With: CECILIA WALKER When: As directed Disposition: Home Minutes spent on discharge:: 35 Medical Necessity - Tobacco Use Smoking Status: Never smoker Tobacco Use: Non-smoker Meaningful Use Info Meaningful Use Diagnoses (Choose all that apply): None applicable <Aravind Mcclure - Last Filed: 11/01/18 14:39> Discharge Date and Diagnosis - Secondary Discharge Diagnosis Chronic Problems Rosacea (Chronic) GERD (gastroesophageal reflux disease) (Chronic) Hospital Course and Treatment Operations: None Procedures: 2-D Echocardiogram, Cardiac catheterization Summary of Care Provided: Patient seen and examined independently. Data reviewed. I agree with the above note by the physician preschool assistant principal. The patient is a 23 year old M presents with tachycardia. Patient was found to have ventricular tachycardia that was sustained. Underwent an echocardiogram that showed an EF of 40-45%. Etiology of the cardiopathy ventricular tachycardia is unknown at this time. Concern is a could be related with alcohol and advised cessation are certainly my duration. Explained could be a virus as well man but to take time for that to get better. She will follow-up with cardiology as outpatient for further monitoring of his cardiomyopathy. [] - Physical Exam General: Alert, Cooperative HEENT: Atraumatic, Normocephalic Neck: No Nodes, Thyroid Normal Size and Texture Lungs: Clear to auscultation, Normal air movement, No rhonchi, No wheeze Cardiovascular: Regular rate, Regular Rhythm, Normal S1, Normal S2, No murmurs Psych/Mental Status: Normal Affect, Appropriate Vital Signs Temp Pulse Resp BP Pulse Ox 36.8 C 59 L 16 109/63 95 11/01/18 08:24 11/01/18 11:00 11/01/18 08:24 11/01/18 08:24 11/01/18 08:24 Oxygen Delivery Method Room Air Weight: 74.1 kg Body Mass Index (BMI) 22.1 Intake and Output for Last 24 Hours 10/30/18 10/31/18 11/01/18 23:59 23:59 23:59 Intake Total 717.7 / 717.7 737.3 / 737.3 1217 / 1217 Output Total 200 / 200 600 / 600 Balance 517.7 / 517.7 137.3 / 137.3 1217 / 1217 Discharge Diet: Low fat/ Low Cholesterol, 2000 mg Sodium Diet Discharge Activity: Return to Normal Activity Disposition: Home Minutes spent on discharge:: 35 Patient Condition:: Fair Meaningful Use Info Meaningful Use Diagnoses (Choose all that apply): None applicable Code Visit Inpatient E&M: 84349 Disch Hosp
--- NOTE | 2018-11-01 14:04 | DS.PCM_ITS ---
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 Echo: Interpretation Summary The estimated ejection fraction is 45-50 %. There is mild to moderate global hypokinesis of the left ventricle. Stage 1 diastolic dysfunction. Trivial tricuspid valve insufficiency. Right ventricular systolic pressure estimated to be 20 mmHg. Frequent PVCs. Results conveyed to Dr Kim at 1410. There is no comparison study available. 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 Continue coreg. D/w DR Mcclure. Manual sheath removal. ETOH avoidance/cessation. Repeat echo in 3 months at conclusion of cardiac rehab. Consultations: CardiologyFelisha Operations: None Procedures: 2-D Echocardiogram, Cardiac catheterization Summary of Care Provided: Hospital course: The patient is a 23 year old M with past medical history of GERD and rosacea, who presented to the emergency room with complaints of heart palpitations. He was found to be in sustained ventricular tachycardia, he was given Lopressor and started on Coreg. An echocardiogram was obtained which demonstrated a reduced ejection fraction of 40-45%. There is moderate to marked global hypokinesis. Cardiology was consulted and he was admitted to the PCU and placed on telemetry. CXR, UA, and Tox Screen were negative. He was started on an amiodarone drip. The following day he underwent a cardiac catheterization was found to have clean coronary arteries. He was felt to have cardiomyopathy possibly secondary to alcohol use as he did admit to drinking enough to black out on occasion, or possibly a viral cardiomyopathy as he recently had a cold. He was started on C oreg, amiodarone, aspirin. He was discharged home in stable condition, he will need to follow-up with cardiology as directed, and follow-up with his PCP in 1-2 weeks. We recommended abstinence from alcohol at [place]. This patient was seen by Bob Morris PA-C under the supervision of Doctor Ren. [] - Physical Exam General: Alert, Oriented x3, Cooperative HEENT: Atraumatic, PERRLA, EOMI, Normocephalic Neck: Supple, No JVD, Negative Carotid Bruits Lungs: Clear to auscultation, Normal air movement Cardiovascular: Regular rate, No murmurs Abdomen: Bowel Sounds Present, Soft, Non Tender Extremities: No edema, Capillary Refill Less than 3 Seconds Skin: No rashes, No breakdown Musculoskeletal: No Tenderness to Palpation of Joints or Extremities Neurological: Cranial nerves II-XII grossly intact Psych/Mental Status: Normal Affect, Appropriate Vital Signs Temp Pulse Resp BP Pulse Ox 98.3 F 59 L 16 109/63 95 11/01/18 08:24 11/01/18 11:00 11/01/18 08:24 11/01/18 08:24 11/01/18 08:24 Oxygen Delivery Method Room Air Weight: 163 lb 5.8 oz Body Mass Index (BMI) 22.1 Intake and Output for Last 24 Hours 10/30/18 10/31/18 11/01/18 23:59 23:59 23:59 Intake Total 717.7 / 717.7 737.3 / 737.3 1217 / 1217 Output Total 200 / 200 600 / 600 Balance 517.7 / 517.7 137.3 / 137.3 121 / 1217 Discharge Diet: Low fat/ Low Cholesterol, 2000 mg Sodium Diet Discharge Activity: Return to Normal Activity Home Medications: Medications to take at Discharge Amiodarone HCl [Cordarone] 200 mg PO DAILY #30 tablet 11/01/18 Aspirin [Aspirin, Baby] 81 mg PO DAILY@0800 tab.chew 11/01/18 Carvedilol [Coreg (Beta Georgina)] 3.125 mg PO BIDCM #60 tablet 11/01/18 Following Prescrptions Were Given to Patient: Amiodarone HCl [Cordarone] 200 mg PO DAILY #30 tablet Carvedilol [Coreg (Beta Georgina)] 3.125 mg PO BIDCM #60 tablet Primary Care Physician: Leonardo Cardoso, MARYANN-C [Primary Care Provider] - Please follow up with your Primary Care Physician in: 1-2 weeks Please Follow Up With: MARIA ANTONIA PLUNKETT When: As directed Please Follow Up With: CECILIA WALKER When: As directed Disposition: Home Minutes spent on discharge:: 35 Medical Necessity - Tobacco Use Smoking Status: Never smoker Tobacco Use: Non-smoker Meaningful Use Info Meaningful Use Diagnoses (Choose all that apply): None applicable <Aravind Mcclure - Last Filed: 11/01/18 14:39> Discharge Date and Diagnosis - Secondary Discharge Diagnosis Chronic Problems Rosacea (Chronic) GERD (gastroesophageal reflux disease) (Chronic) Hospital Course and Treatment Operations: None Procedures: 2-D Echocardiogram, Cardiac catheterization Summary of Care Provided: Patient seen and examined independently. Data reviewed. I agree with the above note by the physician wellness assistant. The patient is a 23 year old M presents with tachycardia. Patient was found to have ventricular tachycardia that was sustained. Underwent an echocardiogram that showed an EF of 40-45%. Etiology of the cardiopathy ventricular tachycardia is unknown at this time. Concern is a could be related with alcohol and advised cessation are certainly my duration. Explained could be a virus as well man but to take time for that to get better. She will follow-up with cardiology as outpatient for further monitoring of his cardiomyopathy. [] - Physical Exam General: Alert, Cooperative HEENT: Atraumatic, Normocephalic Neck: No Nodes, Thyroid Normal Size and Texture Lungs: Clear to auscultation, Normal air movement, No rhonchi, No wheeze Cardiovascular: Regular rate, Regular Rhythm, Normal S1, Normal S2, No murmurs Psych/Mental Status: Normal Affect, Appropriate Vital Signs Temp Pulse Resp BP Pulse Ox 36.8 C 59 L 16 109/63 95 11/01/18 08:24 11/01/18 11:00 11/01/18 08:24 11/01/18 08:24 11/01/18 08:24 Oxygen Delivery Method Room Air Weight: 74.1 kg Body Mass Index (BMI) 22.1 Intake and Output for Last 24 Hours 10/30/18 10/31/18 11/01/18 23:59 23:59 23:59 Intake Total 717.7 / 717.7 737.3 / 737.3 1217 / 1217 Output Total 200 / 200 600 / 600 Balance 517.7 / 517.7 137.3 / 137.3 121 / 1217 Discharge Diet: Low fat/ Low Cholesterol, 2000 mg Sodium Diet Discharge Activity: Return to Normal Activity Disposition: Home Minutes spent on discharge:: 35 Patient Condition:: Fair Meaningful Use Info Meaningful Use Diagnoses (Choose all that apply): None applicable Code Visit Inpatient E&M: 99626 Disch Hosp
== END 2018-11-01 12:28 | disposition home or self-care (01) | DRG 192 ==
LOC: ED 10:12 → PCU 14:29
PROVIDERS: Internal Medicine Cardiovascular Disease; Admitting Provider Family Medicine; Emergency Provider Emergency Medicine; Family Provider Nurse Practitioner Family; PCP Nurse Practitioner Family; Referring Provider Family Medicine
DX: I47.2 Ventricular tachycardia (principal); I42.6 Alcoholic cardiomyopathy; B33.24 Viral cardiomyopathy; K21.9 Gastro-esophageal reflux disease without esophagitis; L71.9 Rosacea, unspecified
CPT/HCPCS: 36415; 71045; 80048; 80307; 81001; 83735; 84443; 84484; 85025; 85610; 85730; 93005; 93225; 93226; 93306; 93458; 99283; Q9967; A4216; C1769; C1894

== ENCOUNTER → 2018-10-30 12:06 | Outpatient (CLI) | payer MEDICAID, SELFPAY ==
[2018-10-30 09:50] VITALS: BMI 23.0
== END ==
PROVIDERS: Family Provider Nurse Practitioner Family; PCP Nurse Practitioner Family; Referring Provider Emergency Medicine; Visit Provider Emergency Medicine
DX: R00.2 Palpitations (principal)
CPT/HCPCS: 93225; 93226

== ENCOUNTER → 2018-11-21 09:12 | Outpatient (CLI) | payer MEDICAID, SELFPAY ==
[2018-11-08 08:27] VITALS: BMI 22.1
--- NOTE | 2018-11-21 09:14 | US_ITS ---
STUDY: THYROID ULTRASOUND REASON FOR EXAM: Male, 23 years old. Hypothyroidism TECHNIQUE: Ultrasound evaluation of the thyroid was performed with real-time and static antony-scale imaging. COMPARISON: None. FINDINGS: RIGHT LOBE: The right lobe of the thyroid gland measures 5.3 x 1.9 x 1.9 cm. There is a homogeneous echotexture. There are no demonstrated solid, cystic or complex lesions. LEFT LOBE: The left lobe of the thyroid gland measures 4.9 x 1.7 x 1.5 cm. There is a homogeneous echotexture. There are no demonstrated solid, cystic or complex lesions. ISTHMUS: The isthmus measures 3 mm . The regional lymph nodes are normal. US/Thyroid IMPRESSION: Normal ultrasound examination of the thyroid. Electronically Signed: Howard Parham MD at 23:54 EDT , Service support ,
== END ==
PROVIDERS: Family Provider Nurse Practitioner Family; PCP Nurse Practitioner Family; Referring Provider Nurse Practitioner Family; Visit Provider Nurse Practitioner Family
DX: E03.9 Hypothyroidism, unspecified (principal)
CPT/HCPCS: 76536

== ENCOUNTER → 2019-06-11 13:37 | Outpatient (CLI) | payer MEDICAID, SELFPAY ==
[2019-05-20 14:34] VITALS: BMI 22.9
--- NOTE | 2019-06-11 13:40 | ECHOD_ITS ---
Reason For Study: CHF Procedure This was a 2D Doppler, Color Flow transthoracic echocardiogram. Exam performed in department. Left Ventricle Mildly dilated left ventricle. The estimated ejection fraction is 55 %. Normal diastology for age. No regional wall motion abnormalities noted. Right Ventricle Mildly dilated right ventricle. Normal systolic function. Atria Normal left atrium. Normal right atrium. Normal atrial septum. Mitral Valve The mitral valve is structurally normal. No prolapse or stenosis seen. Tricuspid Valve Normal tricuspid valve. Trivial tricuspid valve insufficiency. Right ventricular systolic pressure estimated to be 20 mmHg. Aortic Valve Trisinus/trileaflet aortic valve. Trivial aortic valve insufficiency. Pulmonic Valve Normal pulmonic valve. Trivial pulmonic valve insufficiency. Great Vessels Normal aortic root. Pericardium/Pleural No pericardial effusion. MMode/2D Measurements & Calculations LVIDd: 5.2 cm IVSd: 1.1 cm Ao root diam: 2.7 cm LVIDs: 3.8 cm LVPWd: 0.97 cm RVDd: 3.8 cm FS: 27.0 % LAV(MOD-bp): 27.5 ml LVAd ap4: 27.5 cm2 SV(MOD-sp4): 43.9 ml LAV(MOD-bp) Indexed: 14.0 ml/m2 EDV(MOD-sp4): 81.5 ml LAV(MOD-sp2): 30.5 ml EDV(sp4-el): 82.8 ml LAV(MOD-sp4): 23.8 ml LVAs ap4: 17.3 cm2 ESV(MOD-sp4): 37.6 ml ESV(sp4-el): 37.8 ml EF(MOD-sp4): 53.9 % EF(sp4-el): 54.4 % SV(sp4-el): 45.0 ml LA A4 area: 11.2 cm2 LA dimension(2D): 2.6 cm RA A4 area: 8.2 cm2 Doppler Measurements & Calculations MV E max madi: 82.8 cm/sec Lat Peak E' Madi: 16.7 cm/sec Med Peak E' Madi: 9.6 cm/sec MV A max madi: 47.9 cm/sec E/E' lat: 5.0 E/E' med: 8.6 MV E/A: 1.7 Ao V2 max: 108.9 cm/sec LV V1 max: 81.1 cm/sec PA V2 max: 85.5 cm/sec Ao max P.7 mmHg LV V1 max P.6 mmHg Ao V2 mean: 76.0 cm/sec Ao mean P.5 mmHg Ao V2 VTI: 21.6 cm TR max madi: 194.3 cm/sec TR max P.1 mmHg Interpretation Summary The estimated ejection fraction is 55 % with mild global hypokinesis. Mildly dilated left ventricle. Trivial tricuspid valve insufficiency. Right ventricular systolic pressure estimated to be 20 mmHg. Atypical trivial aortic valve insufficiency at the proximal seam b/w the right and left coronary cusps. Compared to echo report dated 10/30/2018, no appreciable changes noted. Ordering Physician: Yandel Campos Referring Physician: Leonardo Cardoso Performed By: Ankita Schultz RDCS, RVT
== END ==
PROVIDERS: Family Provider Nurse Practitioner Family; PCP Nurse Practitioner Family; Referring Provider Internal Medicine Cardiovascular Disease; Visit Provider Internal Medicine Cardiovascular Disease
DX: I47.2 Ventricular tachycardia (principal); I42.9 Cardiomyopathy, unspecified; R00.2 Palpitations
CPT/HCPCS: 93306

== ENCOUNTER 2019-10-19 22:04 | Emergency (ER) | payer MEDICAID, SELFPAY ==
[2019-05-20 14:34] VITALS: BMI 22.9
[2019-10-19 22:05] VITALS: BP 141/79; PULSE 83; RESP 16; TEMP 36.6; O2SAT 98; BMI 22.4
--- NOTE | 2019-10-19 22:17 | ED.DCSUM_ITS ---
- ER Visit Summary Date of Service: 10/19/19 Chief Complaint: Right shoulder injury History of Present Illness: The patient is a 24 M who presents with a right shoulder injury that occurred today. Patient states he fell while snowboarding. Patient states he landed on his right shoulder. Patient states the pain is aching and burning. Patient states the pain is worse with movement. Patient states pain is worse over the posterior aspect of his right shoulder. Patient denies any paresthesias or weakness. Patient denies any head injury or loss of consciousness. Patient denies any other injuries. Physical Examination: Vital signs are stable. Patient is afebrile. Patient is in no acute distress. Musculoskeletal exam reveals tenderness over the right shoulder. There is no obvious deformity. There is no bony crepitance or step- off. There is no edema or ecchymosis. Range of motion was limited in all motions of the right shoulder secondary to pain. There is some mild tenderness of the right cervical paraspinal muscles. There is no midline cervical spine tenderness. There is no tenderness over the elbow or forearm. Radial pulses are equal bilaterally. Sensation was intact light touch in the radial, median, ulnar, and axillary areas. Strength is 5/5 in the radial, median, and ulnar areas. Test Results: X-rays of the right shoulder were obtained. There is no acute fracture or dislocation. This was interpreted by the radiologist and myself. Emergency Department Course and Treatment: Patient was advised of his findings. Patient was instructed to take ibuprofen as needed for pain. Patient was instructed use ice to the area. Patient was instructed to do range of motion exercises. Patient was instructed to follow-up with his primary care physician in 5 to 7 days. Patient understood and was agreeable with the plan. All questions were answered. Disposition: Discharge home Impression: Right shoulder contusion This note was generated with [employer] dictation software. It may contain incorrect words, spelling, and punctuation that were not noted in review of the chart prior to signing ED Disposition - Plan for ED Patient: Disposition: Home or Assisted Living Diagnosis: Contusion of right shoulder, initial encounter Instructions: Shoulder Sprain Referrals: Leonardo Cardoso, MARYANN-C [Primary Care Provider] - 5-7 Days
--- NOTE | 2019-10-19 22:24 | RAD_ITS ---
HISTORY: PAIN S/P FALL Exam: Right Shoulder COMPARISON: None FINDINGS: # of images incl. paperwork: 2 XR Shoulder Min 2 Views: The humeral head is well-positioned within the glenoid fossa. No fracture or subluxation. The acromioclavicular joint is normal. The adjacent chest is unremarkable. RAD/Shoulder min 2 Views IMPRESSION: Normal right shoulder. at 0000 Reported and signed by: Eros Street MD Electronically Signed: Eros Street MD at 23:59 EDT Tel , Service support ,
== END 2019-10-20 00:12 | disposition home or self-care (01) ==
PROVIDERS: Emergency Provider Emergency Medicine; PCP Nurse Practitioner Family
DX: S40.011A Contusion of right shoulder, initial encounter (principal); V00.311A Fall from snowboard, initial encounter; Y93.23 Activity, snow (alpine) (downhill) skiing, snowboarding, sledding, tobogganing and snow tubing
CPT/HCPCS: 73030; 99282

== ENCOUNTER → 2020-04-05 11:53 | Outpatient (CLI) | payer MEDICAID, SELFPAY ==
[2020-04-05 11:46] VITALS: BMI 22.1
--- NOTE | 2020-04-05 11:54 | RAD_ITS ---
STUDY: X-RAY - LEFT ANKLE REASON FOR EXAM: Male, 25 years old. FALL OFF SKATEBOARD. SWELLING AND PAIN ANKLE AND INTO METATARSALS TECHNIQUE: 3 view(s) of the ankle. COMPARISON: None. FINDINGS: Normal visualized distal tibia and fibula. Normal medial and lateral malleoli. Normal tibiotalar articulation and ankle mortise. Normal visualized talus and calcaneus. The visualized subtalar, talonavicular, calcaneocuboid and tarsal articulations are normal. Soft tissue swelling more prominent along the lateral aspect. RAD/Ankle min 3 Views IMPRESSION: Soft tissue swelling. Electronically Signed: Joseph Olvera, at 12:34 EDT , Service support ,
--- NOTE | 2020-04-05 11:54 | RAD_ITS ---
STUDY: X-RAY - LEFT FOOT CLINICAL: Male, 25 years old. FALL OFF SKATEBOARD. SWELLING ANKLE AND INTO METATARSALS TECHNIQUE: 3 view(s) of the foot. COMPARISON: None. FINDINGS: Normal talus, calcaneus, and tarsal bones. Normal visualized subtalar, talonavicular, calcaneocuboid, tarsal and tarsometatarsal articulations. Normal metatarsi. Normal metatarsophalangeal joint of the great toe. Normal tibial and fibular sesamoid bones. Normal interphalangeal joint of the great toe. Normal phalanges of the great toe. Normal second through fifth metatarsophalangeal joints. Normal interphalangeal joints and phalanges of the lesser toes. There is non-specific soft tissue swelling of the foot. RAD/Foot min 3 Views IMPRESSION: Soft tissue swelling. Electronically Signed: Joseph Olvera, at 12:34 EDT , Service support ,
== END ==
PROVIDERS: PCP Nurse Practitioner Family; Referring Provider Physician Assistant Surgical; Visit Provider Physician Assistant Surgical
DX: S93.402A Sprain of unspecified ligament of left ankle, initial encounter (principal); V00.131A Fall from skateboard, initial encounter; Y93.51 Activity, roller skating (inline) and skateboarding
CPT/HCPCS: 73610; 73630

== ENCOUNTER 2020-09-18 16:05 | Inpatient (IN) | payer MEDICAID, OTHER, SELFPAY ==
[2020-06-28 14:44] VITALS: BMI 21.9
[2020-09-18] VITALS (7 sets, daily range): BP systolic 122–150; BP diastolic 63–93; PULSE 61–103; RESP 14–22; TEMP 36.6–36.8; O2SAT 95–100; BMI 20.3; BMI 20.9
--- NOTE | 2020-09-18 16:26 | RAD_ITS ---
STUDY: X-RAY CHEST REASON FOR EXAM: Male, 25 years old. PALPITATIONS TECHNIQUE: AP COMPARISON: 10/30/2018 FINDINGS: The lungs are clear and expanded. There is no demonstrated pleural abnormality. Normal size heart. Normal mediastinum and larry. Normal visualized pulmonary arteries. Normal visualized aortic arch and descending thoracic aorta. Normal visualized thoracic spine. Normal visualized ribs, clavicles, and shoulders. There is no demonstrated abnormality of the visualized soft tissue structures of the upper abdomen. RAD/Chest 1 View (Portable) IMPRESSION: Nonacute portable x-ray examination of the chest. Electronically Signed: Elvin Clarke MD (Brooks) at 16:44 EST , Service support ,
--- NOTE | 2020-09-18 16:26 | ED.DCSUM_ITS ---
History of Present Illness Chief Complaint: Palpitations Informant: Patient Narrative: 5-year-old male presenting with palpitations. He states the onset of the palpitations began at about 4 AM. His watch told him that he was in A. fib. Apparently is what is able to do an EKG. Patient states that throughout the day he has had palpitations, felt lightheaded. He states that this seems occur when he is at rest. He did not capture an EKG that showed A. fib. His watch just read his pulse and told him he had A. fib. He does not have chest tightness or pressure. He does state that he had some pain between his shoulder blades. Patient also reports that one time his heart rate was as low as 40. Patient has complex medical history and has had palpitations in the past. He was found to have wide-complex tachycardia felt to be V. tach. At that point he was seen by Dr. Campos. He was found to be have hypothyroidism as well. Patient is currently on low-dose Coreg. He does have history of mild aortic insufficiency and cardiomyopathy diagnosed at the same time that was alcoholic versus viral cardiomyopathy. His follow-up echocardiogram had been good. He states that he is active physically. 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 He has not been drinking alcohol. - Past Medical History (1) Cardiomyopathy Status: Chronic (2) GERD (gastroesophageal reflux disease) Status: Chronic (3) Hypothyroidism Status: Chronic (4) Palpitations Status: Chronic (5) Ventricular tachycardia Status: Chronic Past Medical History - Allergies and Home Meds Allergies/Adverse Reactions: Allergies sulfamethoxazole [From Bactrim] Allergy (Verified 09/18/20 16:06) Rash trimethoprim [From Bactrim] Allergy (Verified 09/18/20 16:06) Rash Primary Care Physician: Leonardo Cardoso [employer] CULTIVATION MANAGER, [employer] AND C[employer]IVATION MANAGER-C [Primary Care Provider] - Prior records reviewed: Yes Past Medical History: - Surgical History: no surgical history Lives: Alone, Spouse/ Significant Other Smoking Status: Never smoker Alcohol: None Drugs: None Review of Systems General: Denies: Chills, Fever, Sweats Eyes: Denies: Visual changes - bilaterally, Diplopia ENT: Denies: Rhinorrhea, Sore throat Cardiovascular: Reports: Palpitations, Heart racing Respiratory: Denies: Dyspnea, Cough Gastrointestinal: Denies: Abdominal pain, Nausea Genitourinary: Denies: Dysuria, Hematuria Musculoskeletal: Denies: Myalgias, Arthralgias Skin: Denies: Rash, Abscess Neurological: Denies: Headache, Weakness Psych: Reports: Anxiety. Denies: Depression, Suicidal thoughts, Suicidal ideations Physical Exam Vital Signs/Narrative: Vital Signs Temp Pulse Resp BP Pulse Ox 09/18/20 16:06 98.0 F 103 H 16 139/79 H 97 Inital Vital Signs reviewed: Yes General: Well nourished Head: Normocephalic, Atraumatic Eyes: Perrl, EOMI ENT: Moist mucous membranes, No rhinorrhea Cardiovascular: Regular rate, Regular rhythm Respiratory: No distress, CTA bilaterally Extremities: Nontender, No edema Skin: Normal color, No rash. Negative for: Cyanosis, Diaphoresis Neurological: Alert, Oriented x3, Cranial nerves II-XII grossly intact Psychological: Normal affect, Normal Mood Diagnostic/Tx/Re-eval Clinical Impression(s) from Imaging Studies Chest X-Ray 09/18/20 16:26 IMPRESSION: Nonacute portable x-ray examination of the chest. Electronically Signed: Elvin Clarke MD (Brooks) at 16:44 EST , Service support , Laboratory Data 09/18/20 09/18/20 09/18/20 16:20 16:20 16:20 WBC 6.8 RBC 6.18 Hgb 17.6 H Hct 53.5 MCV 86.6 MCH 28.5 MCHC 32.9 RDW Std Deviation 37.8 RDW Coeff of Buddy 11.9 Plt Count 151 MPV 9.1 Immature Gran % (Auto) 0.300 Neut % (Auto) 67.8 Lymph % (Auto) 23.7 Bucks % (Auto) 7.6 Eos % (Auto) 0.3 Baso % (Auto) 0.3 Absolute Neuts (auto) 4.6 Absolute Lymphs (auto) 1.60 Nucleated RBC % 0 D-Dimer Quant (PE/DVT) < 0.27 L Sodium 135 L Potassium 3.7 Chloride 101 Carbon Dioxide 27.0 Anion Gap 7 BUN 12 Creatinine 0.96 Estim Creat Clear Calc 114.19 Est GFR (MDRD) Af Amer 123 Est GFR (MDRD) Non-Af 101 BUN/Creatinine Ratio 12.4 Glucose 102 Calcium 9.5 Magnesium 2.0 Troponin I < 0.015 TSH 1.33 - Rhythm Strip Rhythm Strip: Sinus Rhythm Rate: 82 - EKG Initial EKG Interpretation: Sinus Rhythm, No Acute Injury Pattern - Medical Decision Making 5-year-old male presenting with palpitations and reported history of A. fib caught by his watch. He did not obtain an EKG that showed the A. fib. His EKG performed today shows a normal sinus rhythm at 82 bpm as interpreted by myself. X-ray shows no acute process as interpreted by myself. Radiology does agree. CBC, BMP normal. Troponin is negative. D-dimer is negative. TSH is normal. Magnesium is normal. She was discussed with Dr. Hope who recommended bringing the patient in for observation given his low heart rate and fast heart rate and possibly have any atrial fibrillation. Patient was amenable to this plan. He is admitted in stable condition. Impression: 1. New onset A. fib 2. Bradycardia ED Disposition - Plan for ED Patient: Disposition: Acute Care Hospital [facility] Referrals: Leonardo Cardoso A[employer] PLANTING AND CULTIVATION MANAGER, [employer] PL[employer]ING AND CULTIVATION MANAGER-C [Primary Care Provider] -
--- NOTE | 2020-09-18 16:26 | EKG12_ITS ---
Test Reason : PALPS Blood Pressure : / mmHG Vent. Rate : 082 BPM Atrial Rate : 082 BPM P-R Int : 148 ms QRS Dur : 102 ms QT Int : 378 ms P-R-T Axes : 071 096 050 degrees QTc Int : 441 ms Normal sinus rhythm Rightward axis Borderline ECG Confirmed by CARIE HINKLE, JESSICA ([id number]), commercial production editor URIEL WHITING ([id number]) on 09/21/2020 8:16:46 AM Referred By: CHERYL Confirmed By:JESSICA DARNELL MD
[2020-09-18 16:34] LABS: Absolute Neutrophil Count 4.6 X10^3/uL (2.0-7.7); Basophil# 0.02 X10^3/uL; Basophil% 0.3 % (0-1); Eosinophil# 0.02 X10^3/uL; Eosinophils% 0.3 % (0-5); Hematocrit 53.5 % (40-54); Hemoglobin 17.6 g/dL (13.0-16.5); Lymphocyte % 23.7 % (19-41); Mean Corp Hgb Conc 32.9 g/dL (32-36); Mean Corpuscular Hgb 28.5 pg (27.0-32.0); Mean Corpuscular Volume 86.6 fL (80-94); Mean Platelet Vol. 9.1 fl (6.2-12.0); Monocyte# 0.51 X10^3/uL; Monocyte% 7.6 % (0-10); NRBC Flagged by Analyzer 0 % (0-5); Neutrophil # 4.58 X10^3/uL (2.7-7.7); Neutrophil % 67.8 % (47-70); Platelet Count 151 K/mm3 (150-450); RBC Distribution Width CV 11.9 % (11.6-14.6); RBC Distribution Width SD 37.8 fl (35.1-43.9); Red Blood Count 6.18 M/mm3 (4.6-6.2); White Blood Count 6.8 K/mm3 (4.4-11.0)
[2020-09-18 16:47] LABS: D-Dimer Quantitative (DVT/PE) < 0.27 FEU/ug/m (0.27-0.49)
[2020-09-18 17:33] LABS: Anion Gap 7 (5-15); BUN 12 mg/dL (7-18); BUN/Creat Ratio 12.4 RATIO (10-20); Calcium,Total 9.5 mg/dL (8.5-10.1); Chloride 101 mmol/L (98-107); Creatinine, Serum 0.96 mg/dL (0.70-1.30); EST Glomerular Filtration Rate 101 mL/min (>60); Est Glom Filt Rate - Afr Amer 123 mL/min (>60); Estimated Creatinine Clearance 114.19 ml/min; Glucose 102 mg/dL (74-106); Potassium 3.7 mmol/L (3.5-5.1); Sodium Level 135 mmol/L (136-145); Thyroid Stim Hormone (TSH) 1.33 uIU/mL (0.358-3.74)
--- NOTE | 2020-09-18 19:10 | EKG12_ITS ---
Test Reason : ARRHYTHMIA Blood Pressure : / mmHG Vent. Rate : 064 BPM Atrial Rate : 064 BPM P-R Int : 148 ms QRS Dur : 104 ms QT Int : 420 ms P-R-T Axes : 045 075 041 degrees QTc Int : 433 ms Normal sinus rhythm Normal ECG When compared with ECG of 18-SEP-2020 16:17, MANUAL COMPARISON REQUIRED, DATA IS UNCONFIRMED Confirmed by CARIE HINKLE, JESSICA ([id number]), photography editor URIEL WHITING ([id number]) on 09/21/2020 8:30:05 AM Referred By: BENNY VELAZQUEZ Confirmed By:JESSICA DARNELL MD
--- NOTE | 2020-09-18 19:10 | ECHOD_ITS ---
Reason For Study: Arrhythmia Procedure This was a 2D Doppler, Color Flow transthoracic echocardiogram. Exam performed portable in patient room. Left Ventricle Normal LV size. Left ventricular systolic function is normal. The estimated ejection fraction is 60 %. Normal diastology for age. No regional wall motion abnormalities noted. Right Ventricle Normal RV size. Normal systolic function. Atria Normal left atrium. Normal right atrium. Mitral Valve Normal mitral valve. Tricuspid Valve Normal tricuspid valve. Aortic Valve Trisinus/trileaflet aortic valve. Pulmonic Valve Normal pulmonic valve. Great Vessels Normal aortic root. The pulmonary artery is normal size. Normal inferior vena cava. Pericardium/Pleural No pericardial effusion. MMode/2D Measurements & Calculations LVIDd: 5.1 cm IVSd: 1.3 cm LA dimension: 3.0 cm LVIDs: 3.3 cm LVPWd: 1.1 cm FS: 35.9 % LAV(MOD-bp): 36.0 ml LA A4 area: 12.4 cm2 RA A4 area: 12.4 cm2 LAV(MOD-bp) Indexed: 18.8 ml/m2 LAV(MOD-sp2): 38.8 ml LAV(MOD-sp4): 26.0 ml Time Measurements MV dec time: 0.25 sec Doppler Measurements & Calculations MV E max madi: 80.2 cm/sec Lat Peak E' Madi: 15.7 cm/sec Med Peak E' Maid: 13.3 cm/sec MV A max madi: 40.1 cm/sec E/E' lat: 5.1 E/E' med: 6.0 MV E/A: 2.0 MV V2 max: 78.1 cm/sec MV P1/2t max madi: 76.8 cm/sec Ao V2 max: 97.9 cm/sec MV max P.4 mmHg MV P1/2t: 78.2 msec Ao max P.8 mmHg MV V2 mean: 45.9 cm/sec MV dec slope: 287.7 cm/sec2 MV mean P.99 mmHg MVA(P1/2t): 2.8 cm2 MV V2 VTI: 27.4 cm LV V1 max: 79.3 cm/sec PA V2 max: 100.2 cm/sec LV V1 max P.5 mmHg Interpretation Summary Normal LV size. Left ventricular systolic function is normal. The estimated ejection fraction is 60 %. Normal diastology for age. Ordering Physician: Sheng Corey Performed By: Ty Orosco RCS
--- NOTE | 2020-09-18 19:41 | PCS.PANDOC ---
PANDEMIC DOCUMENTATION INITIATED: Date: 09/18/2020 Time: 1900
[2020-09-18 19:46] LABS: Alcohol, Blood (Medical)-Serum < 3.0 mg/dL
--- NOTE | 2020-09-18 20:07 | HP.PCM_ITS ---
Problem List (1) Palpitations Status: Chronic (2) Tachyarrhythmia Status: Acute History of Present Illness Date of Admission: 09/18/20 Chief Complaint: Palpitations The patient is a 25 year old M with a history of alcohol abuse, ventricular tachycardia and cardiomyopathy [probably tachycardia induced]. Currently patient is not abstinent. Drinks 6-12 hard seltzers on weekends i.e. each Sunday and Sunday. Has been off work for the last 1 week and has been drinking daily about as much. This afternoon woke up from a nap and noticed palpitations. His smart watch recorded heart rates as high as 113 bpm and recorded an episode of atrial fibrillation. Here in the emergency room patient is in sinus rhythm with occasions of mild tachycardia but no episodes of atrial fibrillation here. Episodes were intermittent and episodic and associated with some dizziness and lightheadedness and anxious feelings. Denied having any chest pain but did have some upper back pain in between his scapulae. Mild to moderate elevations in his blood pressure with noted at home and here with the highest being about 156 mmHg systolic. Complains of some epigastric pain and discomfort. [] Past Medical History Past Medical History (Chronic Problems): Chronic Problems (Last Reviewed 06/28/20 @ 15:[address] Laura Vega MD) Hypothyroidism (Chronic) Palpitations (Chronic) Cardiomyopathy (Chronic) Ventricular tachycardia (Chronic) Rosacea (Chronic) GERD (gastroesophageal reflux disease) (Chronic) Medical History: Medical History (Last Reviewed 06/28/20 @ 15:[address] Laura Vega MD) Hypothyroidism (Chronic) E03.9 Palpitations (Chronic) R00.2 Cardiomyopathy (Chronic) I42.9 Ventricular tachycardia (Chronic) I47.2 Rosacea (Chronic) L71.9 GERD (gastroesophageal reflux disease) (Chronic) K21.9 Chronic pain of multiple joints M25.50, G89.29 Hemorrhoids K64.9 Allergies sulfamethoxazole [From Bactrim] Allergy (Verified 09/18/20 16:06) Rash trimethoprim [From Bactrim] Allergy (Verified 09/18/20 16:06) Rash Home Medications: Ambulatory Orders Medication Instructions Recorded carvedilol 3.125 mg tablet 3.125 mg PO BIDCM #180 tab 12/02/18 levothyroxine 25 mcg tablet 25 mcg PO MOTUWETHFR tab 06/28/20 Surgical History: no surgical history Lives: Alone, Spouse/ Significant Other Smoking Status: Never smoker Alcohol: None Drugs: None Review of Systems Constitutional: Denies: Anorexia, Malaise, Fatigue Eyes: Denies: Blurred vision HEENT: Denies: Difficulty Hearing Cardiovascular: Reports: Palpitations. Denies: Chest Pain, Claudication, Chest Pressure, Chest Tightness, Edema, Heaviness, Syncope Respiratory: Denies: Cough Gastrointestinal: Reports: Abdominal Pain - In the epigastrium Genitourinary: Denies: Dysuria Musculoskeletal: Denies: Arm Pain Skin: Denies: Dryness Psychiatric: Reports: Anxiety, Depression Comment: All other systems reviewed and essentially negative VTE Information - Inpt Only VTE Present on Admission: No VTE Mechan Device Prophylaxis: None VTE Pharm Prophylaxis ordered?: No Reason prophylaxis not ordered:: Treatment Not Indicated - Physical Exam Vitals/I&O's: Vital Signs Temp Pulse Resp BP Pulse Ox 98.3 F 61 16 140/82 H 99 09/18/20 19:42 09/18/20 19:42 09/18/20 19:42 09/18/20 19:42 09/18/20 19:42 Oxygen Delivery Method Room Air Weight: 70 kg Body Mass Index (BMI) 20.9 General: Alert, Oriented x3, Cooperative, Well developed, - - Anxious appearing, jittery and mildly tremulous in the outstretched hands, diaphoretic as well HEENT: Atraumatic, PERRLA Oral: Moist Mucosa Neck: Supple, No JVD Lungs: Clear to auscultation, Normal air movement Cardiovascular: Regular rate, Regular Rhythm, Normal S1, Normal S2, No murmurs, - - Occasional ectopics Abdomen: Tender - Mildly in the epigastrium Extremities: No clubbing, No cyanosis, - - Sweaty Musculoskeletal: No Tenderness to Palpation of Joints or Extremities, No Muscle Wasting Neurological: Cranial nerves II-XII grossly intact, Motor Exam 5/5 strength throughout Psych/Mental Status: Anxious, Restless Laboratory Results 09/18/20 16:20: WBC 6.8, RBC 6.18, Hgb 17.6 H, Hct 53.5, MCV 86.6, MCH 28.5, MCHC 32.9, RDW Std Deviation 37.8, RDW Coeff of Buddy 11.9, Plt Count 151, MPV 9.1, Immature Gran % (Auto) 0.300, Neut % (Auto) 67.8, Lymph % (Auto) 23.7, [place] % (Auto) 7.6, Eos % (Auto) 0.3, Baso % (Auto) 0.3, Absolute Neuts (auto) 4.6, Absolute Lymphs (auto) 1.60, Nucleated RBC % 0 09/18/20 16:20: Sodium 135 L, Potassium 3.7, Chloride 101, Carbon Dioxide 27.0, Anion Gap 7, BUN 12, Creatinine 0.96, Estim Creat Clear Calc 114.19, Est GFR (MDRD) Af Amer 123, Est GFR (MDRD) Non-Af 101, BUN/Creatinine Ratio 12.4, Glucose 102, Calcium 9.5, Magnesium 2.0, Troponin I < 0.015, TSH 1.33 09/18/20 16:20: D-Dimer Quant (PE/DVT) < 0.27 L 09/18/20 16:20: Ethyl Alcohol < 3.0 Current Medications Acetaminophen (Acetaminophen 325 Mg Tablet) 650 mg PO Q6H PRN PRN PRN Reason: Pain Score 1-10/Temp > 100.7 F Al Hydroxide/Mg Hydroxide (Mag Hydrox/Al Hydrox/Simeth 30 Ml Udc) 30 ml PO Q6H PRN PRN PRN Reason: Gastric Burning Carvedilol (Carvedilol 3.125 Mg Tablet) [facility] Chlordiazepoxide (Chlordiazepoxide 25 Mg Capsule) 25 mg PO TID COUNT INCLUDES THE [facility] Stop: 09/20/20 14:01 Clonidine (Clonidine Hcl 0.1 Mg Tablet) 0.1 mg PO BID COUNT INCLUDES THE [facility] Famotidine (Famotidine 20 Mg Tablet) 20 mg PO BID COUNT INCLUDES THE [facility] Folic Acid (Folic Acid 1 Mg Tablet) 1 mg PO DAILY@0800 COUNT INCLUDES THE [facility] Stop: 09/21/20 08:01 Lactated Ringer's () 1,000 mls @ 999 mls/hr IV .Q1H1M COUNT INCLUDES THE [facility] Stop: 09/18/20 20:20 Levothyroxine Sodium (Levothyroxine 25 Mcg Tablet) 25 mcg PO MoTuWeThFr@0600 COUNT INCLUDES THE [facility] Lorazepam (Lorazepam 1 Mg Tablet) 2 mg PO Q2H PRN PRN; Protocol PRN Reason: CIWA score > 8 but <15 Lorazepam (Lorazepam 1 Mg Tablet) 2 mg PO UD PRN; Protocol PRN Reason: CIWA score >/=15. Lorazepam (Lorazepam 2 Mg/Ml Syringe) 2 mg IV Q2H PRN PRN; Protocol PRN Reason: CIWA score > 8 but <15 Lorazepam (Lorazepam 2 Mg/Ml Syringe) 2 mg IV UD PRN; Protocol PRN Reason: CIWA score >/=15. Magnesium Hydroxide (Magnesium Hydroxide 30 Ml Udc) 30 ml PO DAILY PRN PRN PRN Reason: Constipation Melatonin (Melatonin 3 Mg Tablet) 3 mg PO QHS PRN PRN PRN Reason: INSOMNIA Ondansetron HCl (Ondansetron 4 Mg/2 Ml Vial) 4 mg IV Q8H PRN PRN PRN Reason: NAUSEA/VOMITING Sodium Chloride (0.9% Saline Lock 10 Ml Syringe) 10 - 40 ml IV UD PRN PRN Reason: SALINE FLUSH Thiamine HCl (Thiamine Hydrochloride 100 Mg Tablet) 100 [facility] Stop: 09/21/20 17:01 Assessment/Plan All Active Problems (Last Reviewed 06/28/20 @ 15:[address] Laura Vega MD) Tachyarrhythmia (Acute) Aortic insufficiency (Acute) Moderate left ankle sprain (Acute) 1. Palpitations. Indeed may have been a tachyarrhythmia that is alcohol induced/related or perhaps secondary to alcohol withdrawal. Will place patient on telemetry. Echocardiogram. Possible cardiology consultation. 2. Suspect alcohol withdrawal. Will start CIWA protocol. Clonidine for central adrenergic inhibition. Placed on telemetry. 3. Epigastric pain. May be related to alcohol abuse. Possible alcoholic gastritis or hepatitis. Will treat with H2 blockers. Check LFTs. 4. Alcohol abuse. Counseled strongly on complete alcohol cessation and abstinence. 5. History of cardiomyopathy. 6. History of ventricular tachycardia. Inpatient E&M: 00893 Init Hosp L3
[2020-09-18] MEDS: 0.9% Saline Lock 10 ML Syringe IV (20:35)
[2020-09-18] MEDS: Lactated Ringers 1,000 ML 999 ML IV (20:35)
[2020-09-18] MEDS: cloNIDine HCl 0.1 MG Tablet PO (20:38)
[2020-09-18] MEDS: Carvedilol 3.125 MG TABLET PO (20:40)
[2020-09-18 21:25] LABS: Amphetamine Urine VISTA NEGATIVE (<1000 ng/mL); Barbiturate Urine VISTA NEGATIVE (< 200 ng/mL); Benzodiazepine Urine VISTA NEGATIVE (< 200 ng/mL); Cocaine Urine VISTA NEGATIVE (< 300 ng/mL); Ecstacy Urine VISTA NEGATIVE (< 500 ng/mL); Methadone Urine VISTA NEGATIVE (< 300 ng/mL); PCP Urine VISTA NEGATIVE (< 25 ng/mL); THC Urine VISTA NEGATIVE (< 50 ng/mL); Vista UDS pH Range 6
[2020-09-18] MEDS: Famotidine 20 MG Tablet PO (21:42)
[2020-09-18] MEDS: chlordiazePOXIDE 25 MG Capsule PO (21:42)
[2020-09-19] VITALS (10 sets, daily range): BP systolic 108–138; BP diastolic 66–75; PULSE 50–72; RESP 14–16; TEMP 36.4–37.1; O2SAT 97–98
[2020-09-19] MEDS: chlordiazePOXIDE 25 MG Capsule PO (05:34)
[2020-09-19 07:21] LABS: Absolute Lymphocyte Count 1.42 X10^3/uL (0.83-4.51); Absolute Neutrophil Count 3.1 X10^3/uL (2.0-7.7); Basophil# 0.03 X10^3/uL; Basophil% 0.6 % (0-1); Eosinophil# 0.09 X10^3/uL; Eosinophils% 1.8 % (0-5); Hematocrit 47.9 % (40-54); Hemoglobin 15.6 g/dL (13.0-16.5); Lymphocyte # 1.42 X10^3/ul (4.0); Lymphocyte % 27.8 % (19-41); Mean Corp Hgb Conc 32.6 g/dL (32-36); Mean Corpuscular Hgb 28.8 pg (27.0-32.0); Mean Corpuscular Volume 88.5 fL (80-94); Mean Platelet Vol. 9.8 fl (6.2-12.0); Monocyte# 0.42 X10^3/uL; Monocyte% 8.2 % (0-10); NRBC Flagged by Analyzer 0 % (0-5); Neutrophil # 3.11 X10^3/uL (2.7-7.7); Platelet Count 107 K/mm3 (150-450); RBC Distribution Width CV 12.1 % (11.6-14.6); RBC Distribution Width SD 39.3 fl (35.1-43.9); Red Blood Count 5.41 M/mm3 (4.6-6.2); White Blood Count 5.1 K/mm3 (4.4-11.0)
[2020-09-19 07:51] LABS: ALB/GLOB Ratio 1.2 RATIO (0.9-2.4); AST(SGOT) 28 U/L (15-37); Alanine Aminotransfer ALT/SGPT 33 U/L (16-61); Albumin, Serum 3.6 g/dL (3.2-5.0); Alkaline Phosphatase 71 U/L (45-117); Anion Gap 7 (5-15); BUN 13 mg/dL (7-18); BUN/Creat Ratio 14.9 RATIO (10-20); Calcium,Total 8.7 mg/dL (8.5-10.1); Chloride 104 mmol/L (98-107); Creatinine, Serum 0.87 mg/dL (0.70-1.30); EST Glomerular Filtration Rate 114 mL/min (>60); Est Glom Filt Rate - Afr Amer 138 mL/min (>60); Estimated Creatinine Clearance 129.63 ml/min; Globulin 2.9 g/dL (2.2-4.2); Glucose 89 mg/dL (74-106); Magnesium 2.4 mg/dL (1.6-2.6); Phosphorus 4.8 mg/dL (2.5-4.9); Potassium 3.6 mmol/L (3.5-5.1); Protein, Total 6.5 g/dL (6.4-8.2); Sodium Level 138 mmol/L (136-145)
[2020-09-19 08:08] LABS: Prothrombin Time (Protime)PT. 12.7 SECONDS (11.7-14.9)
[2020-09-19] MEDS: Thiamine Hydrochloride 100 MG Tablet PO ×2 (09:14→17:07)
[2020-09-19] MEDS: Folic Acid 1 MG Tablet PO (09:15)
[2020-09-19] MEDS: cloNIDine HCl 0.1 MG Tablet PO (09:15)
[2020-09-19] MEDS: Famotidine 20 MG Tablet PO ×2 (09:15→21:16)
[2020-09-19] MEDS: Carvedilol 3.125 MG TABLET PO ×2 (09:15→17:07)
[2020-09-19] MEDS: Phenobarbital 32.4 MG Tablet 97.2 MG PO (11:46)
--- NOTE | 2020-09-19 12:23 | PCM.PN.HOSP ---
Patient Problems: Active and Suspected Problems (Last Reviewed 06/28/20 @ 15:[address] Laura Vega MD) Tachyarrhythmia (Acute) Subjective: Was off last week and was drinking heavily all 7 days. States that he is not sure why he drinks but would like help for it. Vitals/I&O's: Vital Signs Temp Pulse Resp BP Pulse Ox 97.9 F 64 14 110/74 97 09/19/20 11:43 09/19/20 11:43 09/19/20 11:43 09/19/20 11:43 09/19/20 11:43 Oxygen Delivery Method Room Air Weight: 154 lb 5.177 oz Body Mass Index (BMI) 20.9 Intake and Output for Last 24 Hours 09/17/20 09/18/20 09/19/20 23:59 23:59 23:59 Intake Total 1000 / 1000 500 / 500 Balance 1000 / 1000 500 / 500 General: Alert, Oriented x3, Cooperative, No apparent distress HEENT: Atraumatic, PERRLA, EOMI, Normocephalic Oral: Moist Mucosa Neck: Supple, No JVD Lungs: Clear to auscultation, Normal air movement, No rhonchi, No wheeze, No rales Cardiovascular: Regular rate, Regular Rhythm, Normal S1, Normal S2, No murmurs Abdomen: Soft, Non Tender, Non-Distended, No Hepato-splenomegaly Extremities: No edema, Capillary Refill Less than 3 Seconds Skin: No rashes, No breakdown Neurological: Neuro grossly intact, Sensory exam intact to light touch and pain Psych/Mental Status: Normal Affect, Appropriate Laboratory Results 09/18/20 16:20: WBC 6.8, RBC 6.18, Hgb 17.6 H, Hct 53.5, MCV 86.6, MCH 28.5, MCHC 32.9, RDW Std Deviation 37.8, RDW Coeff of Buddy 11.9, Plt Count 151, MPV 9.1, Immature Gran % (Auto) 0.300, Neut % (Auto) 67.8, Lymph % (Auto) 23.7, [place] % (Auto) 7.6, Eos % (Auto) 0.3, Baso % (Auto) 0.3, Absolute Neuts (auto) 4.6, Absolute Lymphs (auto) 1.60, Nucleated RBC % 0 09/18/20 16:20: Sodium 135 L, Potassium 3.7, Chloride 101, Carbon Dioxide 27.0, Anion Gap 7, BUN 12, Creatinine 0.96, Estim Creat Clear Calc 114.19, Est GFR (MDRD) Af Amer 123, Est GFR (MDRD) Non-Af 101, BUN/Creatinine Ratio 12.4, Glucose 102, Calcium 9.5, Magnesium 2.0, Troponin I < 0.015, TSH 1.33 09/18/20 16:20: D-Dimer Quant (PE/DVT) < 0.27 L 09/18/20 16:20: Ethyl Alcohol < 3.0 09/18/20 21:03: Urine Opiates Screen NEGATIVE, Urine Methadone Screen NEGATIVE, Ur Barbiturates Screen NEGATIVE, Ur Phencyclidine Scrn NEGATIVE, Ur Amphetamines Screen NEGATIVE, U Methamphetamin-MDMA NEGATIVE, U Benzodiazepines Scrn NEGATIVE, Urine Cocaine Screen NEGATIVE, U Cannabinoids Screen NEGATIVE, Ur Drug Screen Comment 09/19/20 05:30: WBC 5.1, RBC 5.41, Hgb 15.6, Hct 47.9, MCV 88.5, MCH 28.8, MCHC 32.6, RDW Std Deviation 39.3, RDW Coeff of Buddy 12.1, Plt Count 107 L, MPV 9.8, Immature Gran % (Auto) 0.600, Neut % (Auto) 61.0, Lymph % (Auto) 27.8, [place] % (Auto) 8.2, Eos % (Auto) 1.8, Baso % (Auto) 0.6, Absolute Neuts (auto) 3.1, Absolute Lymphs (auto) 1.42, Nucleated RBC % 0 09/19/20 05:30: PT 12.7, INR 1.0 09/19/20 05:30: Sodium 138, Potassium 3.6, Chloride 104, Carbon Dioxide 27.0, Anion Gap 7, BUN 13, Creatinine 0.87, Estim Creat Clear Calc 129.63, Est GFR (MDRD) Af Amer 138, Est GFR (MDRD) Non-Af 114, BUN/Creatinine Ratio 14.9, Glucose 89, Calcium 8.7, Phosphorus 4.8, Magnesium 2.4, Total Bilirubin 1.30 H, AST 28, ALT 33, Alkaline Phosphatase 71, Total Protein 6.5, Albumin 3.6, Globulin 2.9, Albumin/Globulin Ratio 1.2 Current Medications Acetaminophen (Acetaminophen 325 Mg Tablet) 650 mg PO Q6H PRN PRN PRN Reason: Pain Score 1-10/Temp > 100.7 F Al Hydroxide/Mg Hydroxide (Mag Hydrox/Al Hydrox/Simeth 30 Ml Udc) 30 ml PO Q6H PRN PRN PRN Reason: Gastric Burning Carvedilol (Carvedilol 3.125 Mg Tablet) [facility] Last Admin: 09/19/20 09:15 Dose: 3.125 mg Documented by: Clonidine (Clonidine Hcl 0.1 Mg Tablet) 0.1 mg PO BID [facility] Last Admin: 09/19/20 09:15 Dose: 0.1 mg Documented by: Dicyclomine HCl (Dicyclomine 10 Mg Capsule) 20 mg PO Q6H PRN PRN PRN Reason: abdominal discomfort Famotidine (Famotidine 20 Mg Tablet) 20 mg PO BID [facility] Last Admin: 09/19/20 09:15 Dose: 20 mg Documented by: Folic Acid (Folic Acid 1 Mg Tablet) 1 mg PO DAILY@0800 [facility] Stop: 09/21/20 08:01 Last Admin: 09/19/20 09:15 Dose: 1 mg Documented by: Gabapentin (Gabapentin 300 Mg Capsule) 300 mg PO Q8H PRN PRN PRN Reason: moderate to severe anxiety Hydroxyzine Pamoate (Hydroxyzine Daniella 25 Mg Capsule) 50 mg PO Q4H PRN PRN PRN Reason: mild anxiety Levothyroxine Sodium (Levothyroxine 25 Mcg Tablet) 25 mcg PO MoTuWeThFr@0600 [facility] Loperamide HCl (Loperamide 2 Mg Capsule) 2 mg PO Q4H PRN PRN PRN Reason: LOOSE STOOLS Lorazepam (Lorazepam 1 Mg Tablet) 2 mg PO Q2H PRN PRN; Protocol PRN Reason: CIWA score > 8 but <15 Lorazepam (Lorazepam 1 Mg Tablet) 2 mg PO UD PRN; Protocol PRN Reason: CIWA score >/=15. Lorazepam (Lorazepam 2 Mg/Ml Syringe) 2 mg IV Q2H PRN PRN; Protocol PRN Reason: CIWA score > 8 but <15 Lorazepam (Lorazepam 2 Mg/Ml Syringe) 2 mg IV UD PRN; Protocol PRN Reason: CIWA score >/=15. Magnesium Hydroxide (Magnesium Hydroxide 30 Ml Udc) 30 ml PO DAILY PRN PRN PRN Reason: Constipation Melatonin (Melatonin 3 Mg Tablet) 3 mg PO QHS PRN PRN PRN Reason: INSOMNIA Ondansetron HCl (Ondansetron 4 Mg/2 Ml Vial) 4 mg IV Q8H PRN PRN PRN Reason: NAUSEA/VOMITING Ondansetron HCl (Ondansetron 8 Mg Tablet) 8 mg PO Q8H PRN PRN PRN Reason: NAUSEA Phenobarbital (Phenobarbital 32.4 Mg Tablet) 97.2 mg PO Q4H PIERRE; Taper Stop: 09/23/20 18:59 Last Admin: 09/19/20 11:46 Dose: 97.2 mg Documented by: Sodium Chloride (0.9% Saline Lock 10 Ml Syringe) 10 - 40 ml IV UD PRN PRN Reason: SALINE FLUSH Last Admin: 09/18/20 20:35 Dose: 10 ml Documented by: Thiamine HCl (Thiamine Hydrochloride 100 Mg Tablet) 100 mg PO BIDCM [facility] Stop: 09/21/20 17:01 Last Admin: 09/19/20 09:14 Dose: 100 mg Documented by: Trazodone HCl (Trazodone 100 Mg Tablet) 100 mg PO QHS PRN PRN Reason: INSOMNIA STROKE Vital Signs/Narrative: Vital Signs Temp Pulse Resp BP Pulse Ox 09/19/20 11:43 97.9 F 64 14 110/74 97 09/19/20 09:12 97.8 F 67 16 138/75 H 97 Medical Necessity - Tobacco Use Smoking Status: Never smoker Assessment/Plan All Active Problems (Last Reviewed 06/28/20 @ 15:[address] Laura Vega MD) Tachyarrhythmia (Acute) Aortic insufficiency (Acute) Moderate left ankle sprain (Acute) 1. History of palpitations/history of cardiomyopathy -He is has a history of V. tach and he says that he has been getting palpitations since he was 15 -He has also been drinking for quite a while, he normally drinks on the weekends, however last week he drank every day for the week since he was off. -We will recheck an echo and continue with his Coreg, his last echo was in 2019 and had a normal EF -Continue with telemetry 2. Acute alcohol withdrawal -We will discontinue his Librium and place him on alcohol withdrawal protocol -We will have him follow-up with 180 as an outpatient 3. Hypothyroidism -Stable, TSH is 1.33 -Continue with Synthroid DVT: Ambulation Inpatient E&M: 59866 Subs Hosp L2
--- NOTE | 2020-09-19 12:55 | CON.PCM_ITS ---
Reason for Consult Date of Consultation: 09/19/20 Reason for Consultation: Patient 25-year-old with history of alcohol car diomyopathy and a prior history of V. tach. Evidently had symptoms of palpitation last night and came to the ER. Patient has continued to use alcohol and planning to quit. Cardiac consultation requested for further evaluation. Of his symptoms. History of Present Illness: The patient is a 25 year old M [] Past Medical History Allergies/Adverse Reactions: Allergies sulfamethoxazole [From Bactrim] Allergy (Verified 09/18/20 16:06) Rash trimethoprim [From Bactrim] Allergy (Verified 09/18/20 16:06) Rash Home Medications: Ambulatory Orders Medication Instructions Recorded carvedilol 3.125 mg tablet 3.125 mg PO BIDCM #180 tab 12/02/18 levothyroxine 25 mcg tablet 25 mcg PO MOTUWETHFR tab 06/28/20 Past Medical History (Chronic Problems): Chronic Problems (Last Reviewed 06/28/20 @ 15:[address] Laura Vega MD) Hypothyroidism (Chronic) Palpitations (Chronic) Cardiomyopathy (Chronic) Ventricular tachycardia (Chronic) Rosacea (Chronic) GERD (gastroesophageal reflux disease) (Chronic) Surgical History: no surgical history Lives: Alone, Spouse/ Significant Other Smoking Status: Never smoker Alcohol: None Drugs: None Objective: Vital Signs Temp Pulse Resp BP Pulse Ox 97.9 F 64 14 110/74 97 09/19/20 11:43 09/19/20 11:43 09/19/20 11:43 09/19/20 11:43 09/19/20 11:43 Oxygen Delivery Method Room Air Weight: 154 lb 5.177 oz Body Mass Index (BMI) 20.9 Intake and Output for Last 24 Hours 09/17/20 09/18/20 09/19/20 23:59 23:59 23:59 Intake Total 1000 / 1000 500 / 500 Balance 1000 / 1000 500 / 500 General: Awake, Alert, Oriented x 3 HEENT: Atraumatic Neck: Supple, Good ROM, No Lymph Node Enlargement Lungs: Clear to auscultation Cardiovascular: Regular Rhythm, Normal S1, Normal S2, No Murmurs, No Rubs, No Gallops Vascular: No Carotid Bruits, Normal Femoral Pulses, Normal Radial Pulses, Normal Dorsalis Pedal Pulse, Normal Posterior Tibial Pulses 09/18/20 16:20: WBC 6.8, RBC 6.18, Hgb 17.6 H, Hct 53.5, MCV 86.6, MCH 28.5, MCHC 32.9, Plt Count 151, MPV 9.1, Immature Gran % (Auto) 0.300, Neut % (Auto) 67.8, Lymph % (Auto) 23.7, [place] % (Auto) 7.6, Eos % (Auto) 0.3, Baso % (Auto) 0.3, Absolute Neuts (auto) 4.6, Nucleated RBC % 0 09/18/20 16:20: Sodium 135 L, Potassium 3.7, Chloride 101, Carbon Dioxide 27.0, Anion Gap 7, BUN 12, Creatinine 0.96, Est GFR (MDRD) Af Amer 123, Est GFR (MDRD) Non-Af 101, BUN/Creatinine Ratio 12.4, Glucose 102, Calcium 9.5, Magnesium 2.0, Troponin I < 0.015 09/18/20 16:20: D-Dimer Quant (PE/DVT) < 0.27 L 09/19/20 05:30: WBC 5.1, RBC 5.41, Hgb 15.6, Hct 47.9, MCV 88.5, MCH 28.8, MCHC 32.6, Plt Count 107 L, MPV 9.8, Immature Gran % (Auto) 0.600, Neut % (Auto) 61.0, Lymph % (Auto) 27.8, [place] % (Auto) 8.2, Eos % (Auto) 1.8, Baso % (Auto) 0.6, Absolute Neuts (auto) 3.1, Nucleated RBC % 0 09/19/20 05:30: PT 12.7, INR 1.0 09/19/20 05:30: Sodium 138, Potassium 3.6, Chloride 104, Carbon Dioxide 27.0, Anion Gap 7, BUN 13, Creatinine 0.87, Est GFR (MDRD) Af Amer 138, Est GFR (MDRD) Non-Af 114, BUN/Creatinine Ratio 14.9, Glucose 89, Calcium 8.7, Phosphorus 4.8, Magnesium 2.4, Total Bilirubin 1.30 H Rhythm: Normal sinus rhythm EKG: Sinus rhythm, normal EKG Assessment/Plan 25-year-old patient, seen and evaluated today at bedside, with the nursing staff. Mother at bedside. He was admitted last night from the ER as he has fluctuating heart rate had monitor at home admitted to heart rate of around 09/12/1938 with palpitation. Patient had a history of alcoholic cardiomyopathy, and been on treatment with carvedilol and he follow-up with his primary ventilation equipment tender Dr. Amezcua patient denied any symptoms of chest pain Also he is on medical treatment with carvedilol low-dose 3.25 twice a day in addition to thyroid replacement therapy. He work with [employer] and concern about his fluctuating symptoms of palpitation with increased heart rate on his monitor at home. On review of the EKG the underlying rhythm is sinus rhythm and monitoring and evaluation advisor showed normal sinus DE interval 0.16 QRS is not wide and the QT noted 0.036 seconds. The normal QT is 0.4-0.44 seconds this is still within normal. No family history of sudden cardiac Evidently patient will continue to use alcohol and he is planning to quit Current examination essentially normal Assessment plan; 1. We will reevaluate echocardiogram in the morning #2 we will continue on the current treatment with carvedilol 3. He will be seen on follow-up by his primary ventilation equipment tender. 4. director of patient financial services to assist with alcohol abuse and history of alcoholic cardi omyopathy. If remains stable likely can be discharged tomorrow.
[2020-09-20 03:00] VITALS: PULSE 51
[2020-09-20 03:03] VITALS: BP 117/66; PULSE 54; RESP 16; TEMP 36.4; O2SAT 97
[2020-09-20] MEDS: Levothyroxine 25 MCG TABLET PO (06:25)
[2020-09-20 07:00] VITALS: PULSE 63
[2020-09-20 09:03] VITALS: BP 125/72; PULSE 65; RESP 18; TEMP 36.9; O2SAT 96
[2020-09-20] MEDS: Carvedilol 3.125 MG TABLET PO (09:38)
[2020-09-20] MEDS: Folic Acid 1 MG Tablet PO (09:38)
[2020-09-20] MEDS: Thiamine Hydrochloride 100 MG Tablet PO (09:39)
[2020-09-20] MEDS: cloNIDine HCl 0.1 MG Tablet PO (09:39)
[2020-09-20] MEDS: Famotidine 20 MG Tablet PO (09:39)
--- NOTE | 2020-09-20 10:26 | CASEMGMT ---
Luz Maria from [facility] was consulted to see patient. He is not a [facility] patient so she did not feel comfortable getting into his chart. She told SW what she did with patient. She gave him a list of substance abuse treatment agencies, a list of his options (intensive outpatient, counseling...), peer support hotline, and her card. Patient told her he will follow up with someone. Tiffany BOOTHE
--- NOTE | 2020-09-20 10:35 | CASEMGMT ---
SOLIS GAGE assessment: Face to Face with patient for initial transition planning/care coordination assessment. SOLIS GAGE introduced self and role at [facility], pt voices understanding and consents to assessment at this time. Pt is sitting up in bed in no distress at this time. Pt is A/Ox4 at this time and answers all questions appropriately at this time. Care providers, pharmacy, and demographics verified at this time. Presentation: heart palpitations, 'watch reading afib' Admitting dx: Arrythmia PCP: Janae Specialists: amy Vega [facility]acy: [facility] Insurance: [employer] Prescription Benefit: [employer] Living Will/HPOA: Pt states does not have LW/HPOA, but is interested in AD info at this time. Pt provided with AD info at this time. LNOK: Gali Flaherty, mother; Yandel Flaherty, father Living Arrangements: Pt states lives with mother in 2 story home and states no concerns at home at this time. Pt states is independent with ADL's. Transportation: Pt states drives self and states no transportation concerns at this time. DME/HHC: Pt states no current DME or need for any DME at this time. Pt states no hx of HHC or SNF in the past. Pt states no concerns with going home at time of discharge. 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 Pt states does not smoke cigarettes but does drink ETOH and one-eighty was consulted for pt already. See SW note. Pt voices no further concerns/needs at this time. CM to follow for any further discharge planning/needs. Advised pt to ask for CM if any further questions/concerns/needs arise, voices understanding. Pt Goal: Home Plan: [place]AGE
--- NOTE | 2020-09-20 13:28 | PCM.DC ---
- Discharge Diagnoses Current Active Problems: Current Active and Chronic Problems (Last Reviewed 06/28/20 @ 15:[address] Laura Vega MD) Tachyarrhythmia (Acute) Hypothyroidism (Chronic) Palpitations (Chronic) Cardiomyopathy (Chronic) Ventricular tachycardia (Chronic) GERD (gastroesophageal reflux disease) (Chronic) You will use the following diet at home:: Regular Discharge Activity: May not drive while taking narcotic pain medications. Allergies/Adverse Reactions: Allergies sulfamethoxazole [From Bactrim] Allergy (Verified 09/18/20 16:06) Rash trimethoprim [From Bactrim] Allergy (Verified 09/18/20 16:06) Rash Medications to take at Discharge levothyroxine 25 mcg tablet 25 mcg PO MOTUWETHFR tab 06/28/20 Carvedilol [Coreg (Beta Georgina)] 3.125 mg PO BIDCM #180 tab 09/20/20 The following prescriptions were given: Carvedilol [Coreg (Beta Georgina)] 3.125 mg PO BIDCM #180 tab Transmission Status: Pending to [id number] Primary Care Physician: Leonardo Cardoso AIRPLANE MECHANIC APPRENTICE, AIRPLANE MECHANIC APPRENTICE-C [Primary Care Provider] - Please follow up with your Primary Care Physician in: in 1-2 weeks Test Results: Test results from this visit will be discussed in further detail at your follow-up appointment, if applicable. Please Follow Up With: Laura Vega MD When: in 2-4 weeks Proposed Discharge Date: 09/20/20
--- NOTE | 2020-09-20 13:32 | DS.PCM_ITS ---
Discharge Date and Diagnosis - Problem List Patient Problems: Active and Suspected Problems (Last Reviewed 06/28/20 @ 15:[address] Laura Vega MD) Tachyarrhythmia (Acute) Date of Admission: 09/18/20 Date of Discharge: 09/20/20 - Primary Discharge Diagnosis Acute Problems: Active Problems (Last Reviewed 06/28/20 @ 15:[address] Laura Vega MD) Tachyarrhythmia (Acute) - Secondary Discharge Diagnosis Chronic Problems: Chronic Problems (Last Reviewed 06/28/20 @ 15:[address] Laura Vega MD) Hypothyroidism (Chronic) Palpitations (Chronic) Cardiomyopathy (Chronic) Ventricular tachycardia (Chronic) Rosacea (Chronic) GERD (gastroesophageal reflux disease) (Chronic) Hospital Course and Treatment Imaging Results: Clinical Impression(s) from Imaging Studies Chest X-Ray 09/18/20 16:26 IMPRESSION: Nonacute portable x-ray examination of the chest. Electronically Signed: Elvin Clarke MD ([place]) at 16:44 EST , Service support , 2D echo; Normal LV size. Left ventricular systolic function is normal. The estimated ejection fraction is 60 %. Normal diastology for age. Operations: None Summary of Care Provided: The patient is a 25 year old M with history of alcoholic cardiomyopathy who presented with palpitations 1. Acute arrhythmias ?Patient presented with palpitations. Admitted to monitored bed patient was previously on carvedilol 3.25 mg p.o. twice daily this was resumed prescription written on discharge patient underwent a 2D echo which demonstrated normal LV function. Discharge home instructed to follow-up with primary cancer researcher 2. History of chronic alcohol dependence ?Patient was counseled on cessation patient will follow up with 180 for subsequent care. 3. Hypothyroidism ?Patient is on levothyroxine did continue Patient Problems: Active and Suspected Problems (Last Reviewed 06/28/20 @ 15:[address] Laura Vega MD) Tachyarrhythmia (Acute) Objective: GENERAL: cooperative HEENT: Atraumatic; EYES; Anicteric, Normal Conjunctiva NECK; supple, normal thyroid, RESPIRATORY: Diminished to auscultation CARDIOVASCULAR: Regular S1 S2, NEURO: Awake; no lateralizing signs. SKIN: No Rash PSYCH; Flat affect - Physical Exam Vitals/I&O's: Vital Signs Temp Pulse Resp BP Pulse Ox 98.5 F 65 18 125/72 H 96 09/20/20 09:03 09/20/20 09:03 09/20/20 09:03 09/20/20 09:03 09/20/20 09:03 Oxygen Delivery Method Room Air Weight: 70 kg Body Mass Index (BMI) 20.9 Intake and Output for Last 24 Hours 09/18/20 09/19/20 09/20/20 23:59 23:59 23:59 Intake Total 1000 / 1000 1460 / 1460 480 / 480 Balance 1000 / 1000 1460 / 1460 480 / 480 Current Medications Acetaminophen (Acetaminophen 325 Mg Tablet) 650 mg PO Q6H PRN PRN PRN Reason: Pain Score 1-10/Temp > 100.7 F Al Hydroxide/Mg Hydroxide (Mag Hydrox/Al Hydrox/Simeth 30 Ml Udc) 30 ml PO Q6H PRN PRN PRN Reason: Gastric Burning Car[facility]ilol ([facility] 3.125 Mg Tablet) [facility] Last Admin: 09/20/20 09:38 Dose: 3.125 mg Documented by: Clonidine (Clonidine Hcl 0.1 Mg Tablet) 0.1 mg PO BID [facility] [place] Last Admin: 09/20/20 09:39 Dose: 0.1 mg Documented by: Dicyclomine HCl (Dicyclomine 10 Mg Capsule) 20 mg PO Q6H PRN PRN PRN Reason: abdominal discomfort Famotidine (Famotidine 20 Mg Tablet) 20 mg PO BID [facility] [place] Last Admin: 09/20/20 09:39 Dose: 20 mg Documented by: Folic Acid (Folic Acid 1 Mg Tablet) 1 mg PO DAILY@0800 [facility] [place] Stop: 09/21/20 08:01 Last Admin: 09/20/20 09:38 Dose: 1 mg Documented by: Gabapentin (Gabapentin 300 Mg Capsule) 300 mg PO Q8H PRN PRN PRN Reason: moderate to severe anxiety Hydroxyzine Pamoate (Hydroxyzine Daniella 25 Mg Capsule) 50 mg PO Q4H PRN PRN PRN Reason: mild anxiety Levothyroxine Sodium (Levothyroxine 25 Mcg Tablet) 25 mcg PO MoTuWeThFr@0600 [facility] [place] Last Admin: 09/20/20 06:25 Dose: 25 mcg Documented by: Loperamide HCl (Loperamide 2 Mg Capsule) 2 mg PO Q4H PRN PRN PRN Reason: LOOSE STOOLS Lorazepam (Lorazepam 1 Mg Tablet) 2 mg PO Q2H PRN PRN; Protocol PRN Reason: CIWA score > 8 but <15 Lorazepam (Lorazepam 1 Mg Tablet) 2 mg PO UD PRN; Protocol PRN Reason: CIWA score >/=15. Lorazepam (Lorazepam 2 Mg/Ml Syringe) 2 mg IV Q2H PRN PRN; Protocol PRN Reason: CIWA score > 8 but <15 Lorazepam (Lorazepam 2 Mg/Ml Syringe) 2 mg IV UD PRN; Protocol PRN Reason: CIWA score >/=15. Magnesium Hydroxide (Magnesium Hydroxide 30 Ml Udc) 30 ml PO DAILY PRN PRN PRN Reason: Constipation Melatonin (Melatonin 3 Mg Tablet) 3 mg PO QHS PRN PRN PRN Reason: INSOMNIA Ondansetron HCl (Ondansetron 4 Mg/2 Ml Vial) 4 mg IV Q8H PRN PRN PRN Reason: NAUSEA/VOMITING Ondansetron HCl (Ondansetron 8 Mg Tablet) 8 mg PO Q8H PRN PRN PRN Reason: NAUSEA Sodium Chloride (0.9% Saline Lock 10 Ml Syringe) 10 - 40 ml IV UD PRN PRN Reason: SALINE FLUSH Last Admin: 09/18/20 20:35 Dose: 10 ml Documented by: Thiamine HCl (Thiamine Hydrochloride 100 Mg Tablet) 100 mg PO BIDCM [facility] Stop: 09/21/20 17:01 Last Admin: 09/20/20 09:39 Dose: 100 mg Documented by: Trazodone HCl (Trazodone 100 Mg Tablet) 100 mg PO QHS PRN PRN Reason: INSOMNIA Discharge Diet: No Restrictions Discharge Activity: May not drive while taking narcotic pain medications. Home Medications: Medications to take at Discharge levothyroxine 25 mcg tablet 25 mcg PO MOTUWETHFR tab 06/28/20 Carvedilol [Coreg (Beta Georgina)] 3.125 mg PO BIDCM #180 tab 09/20/20 Following Prescriptions Were Given to Patient: Carvedilol [Coreg (Beta Georgina)] 3.125 mg PO BIDCM #180 tab Transmission Status: Pending to [id number] Primary Care Physician: Leonardo Cardoso CAR BRACER, CAR BRACER-C [Primary Care Provider] - Please follow up with your Primary Care Physician in: in 1-2 weeks Please Follow Up With: Laura Vega MD When: in 2-4 weeks Disposition: Home Minutes spent on discharge:: 35 Patient Condition:: Stable Medical Necessity - Tobacco Use Smoking Status: Never smoker Meaningful Use Info Meaningful Use Diagnoses (Choose all that apply): None applicable Inpatient E&M: 81393 Disch Hosp
[2020-09-20 14:00] VITALS: BP 114/68; PULSE 62; RESP 18; TEMP 36.9; O2SAT 97
--- NOTE | 2020-09-20 15:07 | PHA.DC.MR ---
Pharmacy Service has performed discharge medication reconciliation for this patient. No new meds at time of discharge review. Medications reviewed are from previously reported home medications. Home Medications levothyroxine 25 mcg tablet 25 mcg PO MOTUWETHFR tab 06/28/20 Carvedilol [Coreg (Beta Georgina)] 3.125 mg PO BIDCM #180 tab 09/20/20 The patient's discharge medication list was reviewed for discrepancies and discrepancies were resolved.
== END 2020-09-20 15:25 | disposition home or self-care (01) | DRG 309 ==
LOC: ED 18:19 → PCU 20:20
PROVIDERS: Admitting Provider Internal Medicine; Emergency Provider Student in an Organized Health Care Education/Training Program; PCP Nurse Practitioner Family; Visit Provider Internal Medicine
DX: I47.2 Ventricular tachycardia (principal); F10.239 Alcohol dependence with withdrawal, unspecified; I42.6 Alcoholic cardiomyopathy; E03.9 Hypothyroidism, unspecified; K21.9 Gastro-esophageal reflux disease without esophagitis; Z79.890 Hormone replacement therapy; Z86.79 Personal history of other diseases of the circulatory system; L71.9 Rosacea, unspecified; Y90.9 Presence of alcohol in blood, level not specified
CPT/HCPCS: 36415; 71045; 80048; 80053; 80307; 82077; 83735; 84100; 84443; 84484; 85025; 85379; 85610; 93005; 93306; 99285; J7120; A4216

== ENCOUNTER → 2021-05-09 15:03 | Outpatient (CLI) | payer OTHER, SELFPAY ==
[2021-05-13 13:08] LABS: Banana <0.10 kU/L (Class 0); Barley, Whole Grain <0.10 kU/L (Class 0); Beef <0.10 kU/L (Class 0); Brazil Nut <0.10 kU/L (Class 0); Chicken <0.10 kU/L (Class 0); Egg, Whole <0.10 kU/L (Class 0); Gluten <0.10 kU/L (Class 0); Milk (Cow) <0.10 kU/L (Class 0); Oat <0.10 kU/L (Class 0); Pecan <0.10 kU/L (Class 0); Potato, White <0.10 kU/L (Class 0); Rice <0.10 kU/L (Class 0); Soybean <0.10 kU/L (Class 0); Walnut, (Food) <0.10 kU/L (Class 0); Wheat <0.10 kU/L (Class 0); Yeast <0.10 kU/L (Class 0)
[2021-05-13 13:37] LABS: Peanut <0.10 kU/L (Class 0); Turkey <0.10 kU/L (Class 0)
== END ==
PROVIDERS: PCP Nurse Practitioner Family; Referring Provider Otolaryngology Otolaryngology/Facial Plastic Surgery; Visit Provider Otolaryngology Otolaryngology/Facial Plastic Surgery
DX: T78.40XA Allergy, unspecified, initial encounter (principal)
CPT/HCPCS: 36415; 86003

== ENCOUNTER → 2023-03-19 | Outpatient (CLI) | payer OTHER, SELFPAY ==
--- NOTE | 2023-03-19 12:59 | ECHOD_ITS ---
Reason For Study: Cardiomyopathy Procedure This was a 2D Doppler, Color Flow transthoracic echocardiogram. Exam performed in department. Left Ventricle Normal LV size. Left ventricular systolic function is normal. The estimated ejection fraction is 55 %. Normal diastology for age. No regional wall motion abnormalities noted. Right Ventricle Normal RV size. Normal systolic function. Atria Normal left atrium. Normal right atrium. Mitral Valve Normal mitral valve. Mild (1+) eccentric mitral valve insufficiency. Tricuspid Valve Normal tricuspid valve. Mild (1+) tricuspid valve insufficiency. Pulmonary artery systolic pressure is 24 mmHg. Aortic Valve Normal aortic valve. Trisinus/trileaflet aortic valve. Pulmonic Valve Normal pulmonic valve. Great Vessels Normal aortic root. The pulmonary artery is normal size. Inferior vena cava collapse with respiration. Pericardium/Pleural No pericardial effusion. MMode/2D Measurements & Calculations LVIDd: 5.7 cm IVSd: 0.93 cm Ao root diam: 2.6 cm LVIDs: 3.5 cm LVPWd: 0.91 cm RVDd: 3.8 cm FS: 38.5 % LAV(MOD-bp): 42.5 ml LVAd ap4: 37.5 cm2 LVAd ap2: 28.7 cm2 LAV(MOD-bp) Indexed: 21.7 ml/m2 LVLd ap4: 9.2 cm LVLd ap2: 8.6 cm LAV(MOD-sp2): 34.5 ml EDV(MOD-sp4): 127.8 ml EDV(MOD-sp2): 83.1 ml LAV(MOD-sp4): 44.5 ml EDV(sp4-el): 129.5 ml EDV(sp2-el): 81.4 ml LVAs ap4: 21.5 cm2 LVAs ap2: 18.0 cm2 LVLs ap4: 8.0 cm LVLs ap2: 7.7 cm ESV(MOD-sp4): 50.0 ml ESV(MOD-sp2): 36.7 ml ESV(sp4-el): 49.2 ml ESV(sp2-el): 35.4 ml EF(MOD-sp4): 60.9 % EF(MOD-sp2): 55.8 % EF(sp4-el): 62.0 % SV(MOD-sp4): 77.9 ml SV(MOD-sp2): 46.3 ml SV(sp4-el): 80.4 ml LA dimension(2D): 3.4 cm LA A4 area: 17.5 cm2 RA A4 area: 17.7 cm2 TAPSE: 2.2 cm Time Measurements MV dec time: 0.14 sec Doppler Measurements & Calculations MV E max madi: 97.7 cm/sec Lat Peak E' Madi: 21.9 cm/sec Med Peak E' Madi: 16.8 cm/sec MV A max madi: 49.8 cm/sec E/E' lat: 4.5 E/E' med: 5.8 MV E/A: 2.0 MV dec slope: 691.3 cm/sec2 Ao V2 max: 150.1 cm/sec LV V1 max: 114.4 cm/sec Ao max P.0 mmHg LV V1 max P.2 mmHg Ao V2 mean: 100.0 cm/sec LV V1 mean P.8 mmHg Ao mean P.6 mmHg LV V1 mean: 77.0 cm/sec Ao V2 VTI: 31.6 cm LV V1 VTI: 23.7 cm AV (velocity ratio): 0.75 PA V2 max: 113.4 cm/sec TR max madi: 226.4 cm/sec TR max P.5 mmHg ECHO/Echo Complete Interpretation Summary Normal LV size. Left ventricular systolic function is normal. The estimated ejection fraction is 55 %. Pulmonary artery systolic pressure is 24 mmHg. Ordering Physician: Jose Alejandro Schultz Referring Physician: Leonardo Cardoso Performed By: Tabitha Oakley RDCS
== END | disposition home or self-care (01) ==
LOC: CVS 12:56
PROVIDERS: PCP Nurse Practitioner Family; Referring Provider Nurse Practitioner Family; Visit Provider Nurse Practitioner Family
DX: I42.9 Cardiomyopathy, unspecified (principal); I47.20 Ventricular tachycardia, unspecified
CPT/HCPCS: 93306